=== PATIENT | female | born 1945 | race Caucasian/White ===

== ENCOUNTER → 2016-10-18 | Outpatient (CLI) | payer MEDICARE ==
[~2016-10-18] MED LIST: VICO5TAB
--- NOTE | 2016-10-18 09:54 | REP ---
BILATERAL DIGITAL SCREENING MAMMOGRAM: 10/18/2016. Comparison: 10/17/2015, 10/14/2014, 10/12/2013, 10/10/2012, 10/06/2011. Clinical history: Screening examination. She has a prior history of right breast cancer with lumpectomy, radiation and chemotherapy in 2010. There are scattered fibroglandular elements of moderate density which are fairly symmetric in distribution compared to prior studies. In the right breast, there is some mild skin thickening anteriorly which has decreased over the past 5 years. There are axillary surgical clips from prior lymph node dissection on the right. On the right MLO image, there is a subtle zone of nodular tissue asymmetry above the plane of the nipple. It may be noon position based on the MLO. There is tissue asymmetry in the deep central right breast inner half on the CC view, probably upper inner quadrant. These areas deserve further evaluation. There are no dominant masses, clusters of microcalcification, architectural distortion or other secondary signs of malignancy. Impression: 1. BIRADS ACR category 0 incomplete. Needs additional imaging evaluation. The right breast needs spot magnified MLO and CC views to evaluate the areas identified by arrows on today's mammogram. Additional images and ultrasound may be performed at the discretion of the reviewing radiologist. This mammogram was interpreted with the aid of an FDA-approved computer-aided detection system. A. Negative x-ray reports should not delay biopsy if a dominant or clinically suspicious mass is present. B. Four to eight percent of cancers are not identified by x-ray. C. Adenosis and dense breasts may obscure an underlying neoplasm. The patient states she had a clinical breast exam in 04/2016. The patient letter being requested is M0.
--- NOTE | 2016-10-19 09:24 | DEXA ---
AP SPINE L1 - L4 1.043 -1.2 0.5 LT FEMUR TOTAL 0.764 -1.9 -0.5 RT FEMUR TOTAL 0.799 -1.7 -0.2 TOTAL BODY TOTAL OTHER DUAL FEMUR FRAX* ASSESSMENT Risk factors: History adult fracture, premature menopause. 10 year probability of fracture Major osteoporotic fracture 17.1 % Hip fracture 3.0 % COMMENTS: There is low bone density of the spine. There is low bone density of the left hip. There is low bone density of the right hip. The decreased density of the spine does represent a significant change since . The decreased density of the left hip does represent a significant change since 10/14/2014. The decreased density of the right hip does represent a significant change. The density of the spine has decreased 2.3% since the initial exam on 2001. The spine density has decreased 2.3% since the most recent exam on 10/14/2014. The density of the left hip has decreased 10.0% since the initial exam on 2001. The density of the left hip has decreased 3.7% since the most recent exam on . The density of the right hip has decreased 4.2% since the initial exam on 2001. The density of the right hip has decreased 1.6% since the most recent exam on . FOLLOW-UP: Recommendation for the next bone density exam: 2 years. LUIS
== END ==
LOC: M WHC 08:29
PROVIDERS: ATTEND Nurse Practitioner Family
DX: R92.2 Inconclusive mammogram (principal); N95.1 Menopausal and female climacteric states; Z79.899 Other long term (current) drug therapy; M85.9 Disorder of bone density and structure, unspecified; Z08 Encounter for follow-up examination after completed treatment for malignant neoplasm; Z85.3 Personal history of malignant neoplasm of breast
CPT/HCPCS: 77080; G0202

== ENCOUNTER → 2016-10-21 | Outpatient (CLI) | payer MEDICARE ==
--- NOTE | 2016-10-21 14:45 | REP ---
RIGHT BREAST ULTRASOUND: 10/21/2016. COMPARISON: Diagnostic mammogram today, screening mammogram 10/18/2016, 10/17/2015, 10/14/2014. CLINICAL HISTORY: Previous screening mammogram with nodular tissue asymmetry retroareolar zone upper aspect on the MLO view, not seen in the dense breast parenchyma in the retroareolar zone on CC view or spot magnification. No cyst or solid mass is evident on these images. There are dilated ducts in the retroareolar zone. Dense echogenic fibrocystic tissue in the retroareolar region. No other findings. IMPRESSION: 1. No sonographic evidence of a nodular mass retroareolar zone upper half of the right breast. The dense echogenic retroareolar parenchyma on mammogram does NOT obscure any underlying sonographically visible mass. Negative exam. 2. Please see mammogram report this date for final assessment and recommendation. Signed by Lorenzo Jackson MD 10/21/2016 05:28 P
--- NOTE | 2016-10-21 15:01 | REP ---
DIAGNOSTIC DIGITAL RIGHT MAMMOGRAM: 10/21/2016 CLINICAL HISTORY: Some tissue asymmetry central right breast in the plane of the nipple on MLO view and inner half centrally on the CC view. She has history of right breast carcinoma with lumpectomy, radiation, and chemotherapy in 2010. FINDINGS: Magnified CC view, spot magnified right MLO, and ML views were all obtained. The area in question compresses on the spot magnified CC view to similar appearance of multiple prior studies. There is scarring evident and postoperative change. I do not see clustered microcalcification, architectural distortion, or significant tissue asymmetry. There are no suspicious clusters of microcalcification or other secondary signs of malignancy. The right breast ultrasound showed no sonographically definable mass, cyst, or other significant finding. IMPRESSION: 1. BI-RADS ACR category 2, benign. Benign findings. No evidence of malignancy. The tissue asymmetry compresses to appearance similar to multiple prior studies and represents postoperative scarring and compresses well with the spot magnified views. 2. Recommend followup mammography 1 year. This mammogram was interpreted with the aid of an FDA-approved computer-aided detection system. A. Negative x-ray reports should not delay biopsy if a dominant or clinically suspicious mass is present. B. Four to eight percent of cancers are not identified by x-ray. C. Adenosis and dense breasts may obscure an underlying neoplasm. The patient states she/he had a clinical breast exam in 04/2016. The patient letter being requested is M1. Signed by Lorenzo Jackson MD 10/21/2016 05:30 P
== END ==
LOC: M RAD 12:39
PROVIDERS: ATTEND Nurse Practitioner Family
DX: R92.2 Inconclusive mammogram (principal)
CPT/HCPCS: 76642; G0206

== ENCOUNTER → 2016-11-22 | Outpatient (REF) | payer MEDICARE | LOC: M LAB REF 12:40 | PROVIDERS: ATTEND Internal Medicine Medical Oncology | DX: C50.919 Malignant neoplasm of unspecified site of unspecified female breast (principal) ==

== ENCOUNTER → 2017-01-05 | Outpatient (CLI) | payer MEDICARE ==
[2017-01-05 13:47] LABS: EOS # 0.1 K/mm3 (0.0-0.50); EOS % 2.8 % (0.0-3.0); LARGE UNSTAINED CELL # 0.1 K/mm3 (0.0-0.4); LARGE UNSTAINED CELL % 2.4 % (0.0-4.0); LYMPH # 1.1 K/mm3 (1.5-4.5); LYMPH % 31.9 % (24.0-44.0); MEAN CORPUSCULAR HEMOGLOBIN 30.8 pg (27.0-33.0); MEAN CORPUSCULAR HGB CONC 33.3 g/dl (32.0-36.5); MEAN CORPUSCULAR VOLUME 92.4 fl (80.0-96.0); MONO # 0.2 K/mm3 (0.0-0.8); MONO % 6.7 % (0.0-5.0); NEUTROPHILS # 1.8 K/mm3 (1.8-7.7); NEUTROPHILS % 55.1 % (36.0-66.0); PLATELET COUNT, AUTOMATED 232 k/mm3 (150-450); RED CELL DISTRIBUTION WIDTH 13.5 % (11.5-14.5); WHITE BLOOD COUNT 3.2 K/mm3 (4.0-10.0)
[2017-01-05 14:06] LABS: FOLATE 21.3 NG/ML; VITAMIN B12 LEVEL 418 PG/ML
[2017-01-05 14:10] LABS: ALBUMIN 3.9 GM/DL (3.2-5.2); ALBUMIN/GLOBULIN RATIO 1.34 (1.00-1.93); ALKALINE PHOSPHATASE 91 U/L (45-117); ALT/SGPT 22 U/L (12-78); ANION GAP 8 MEQ/L (8-16); AST/SGOT 12 U/L (15-37); BILIRUBIN,TOTAL 0.5 MG/DL (0.2-1.0); BLOOD UREA NITROGEN 14 MG/DL (7-18); CALCIUM LEVEL 8.4 MG/DL (8.8-10.2); CARBON DIOXIDE LEVEL 28 MEQ/L (21-32); CHLORIDE LEVEL 104 MEQ/L (98-107); CHOLESTEROL LEVEL 211 MG/DL (<200); CREATININE FOR GFR 0.76 MG/DL (0.55-1.02); FREE T4 0.94 NG/DL (0.76-1.46); GLOMERULAR FILTRATION RATE > 60.0 (>45); GLUCOSE, FASTING 87 MG/DL (80-110); POTASSIUM SERUM 4.5 MEQ/L (3.5-5.1); SODIUM LEVEL 140 MEQ/L (136-145); TOTAL PROTEIN 6.8 GM/DL (6.4-8.2); TRIGLYCERIDES LEVEL 120 MG/DL (<150)
== END ==
LOC: M SMT 09:06
PROVIDERS: ATTEND Family Medicine
DX: R20.0 Anesthesia of skin (principal); M85.89 Other specified disorders of bone density and structure, multiple sites; R73.9 Hyperglycemia, unspecified

== ENCOUNTER → 2017-05-25 | Outpatient (REF) | payer MEDICARE | LOC: M LAB REF 12:35 | PROVIDERS: ATTEND Internal Medicine Medical Oncology | DX: C50.919 Malignant neoplasm of unspecified site of unspecified female breast (principal) ==

== ENCOUNTER → 2017-05-30 | Outpatient (CLI) | payer MEDICARE ==
--- NOTE | 2017-05-30 11:45 | REP ---
Whole body radionuclide bone scan: The study includes whole-body scanning and oblique views of the ribs and pelvis and lateral views of the calvarium and feet. There are no comparison studies. There is a degenerative pattern of uptake in the shoulders and at the bases of the thumbs. No rib or spine foci are identified. There is significant very increased uptake in the left hip. There is mildly increased uptake in the right hip. The pelvis is otherwise unremarkable. There is a slightly increased uptake in the right foot, likely arthritic or degenerative uptake. Impression: There is significantly increased uptake in the left hip is slightly increased uptake in the right hip. There is a degenerative pattern of uptake in the shoulders, thumb bases and right foot. The study is performed with 22.0 mCi of technetium 99m labeled MDP. Signed by Fuasto Marcelo MD 05/30/2017 11:36 A
== END ==
LOC: M RAD 08:16
PROVIDERS: ATTEND Internal Medicine Medical Oncology
DX: M25.552 Pain in left hip (principal); C50.919 Malignant neoplasm of unspecified site of unspecified female breast
CPT/HCPCS: 78306; A9503

== ENCOUNTER → 2017-06-13 | Outpatient (CLI) | payer MEDICARE ==
[~2017-06-13] MED LIST changes: +PROHANCE 279.3MG/ML 15ML VIAL (A9576) As Ordered ONE
--- NOTE | 2017-06-13 12:08 | REP ---
MRI LEFT HIP WITH AND WITHOUT CONTRAST: TECHNIQUE: Coronal T1, STIR through the pelvis, T2 fat sat, left hip all three planes, axial oblique proton density fat sat left hip. Coronal T2 fat sat, post IV Gadolinium coronal T2 fat sat and axial T2 fat sat following the intravenous administration of 6 mL Gadolinium. There are fairly severe arthritic changes at the left hip joint with diffuse chondromalacia and moderate spurring on both sides of the joint. There is subchondral marrow edema in the acetabulum superiorly as well as in the left femoral head. In addition, there is an area in the central articulating portion of the left femoral head which demonstrates serpiginous low and high signal most consistent with a small area of avascular necrosis. No suspicious bone lesion is seen in this region. There does appear to be an anterior labral tear. There is moderate joint effusion. There are also findings of mild bilateral greater trochanteric tendinobursitis. There is mild subchondral marrow edema in the right femoral head due to mild arthritic changes at the right hip joint. No soft tissue mass is seen in the visualized portions of the pelvis. No adenopathy is seen in the visualized portions of the pelvis. Other portions of visualized pelvis appear unremarkable. 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 Moderate joint effusion. Anterior labral tear. No suspicious bone lesions are identified. No soft tissue mass is seen of the visualized portions of the pelvis. There are mild arthritic changes at the right hip joint. Signed by Fausto Meade MD 06/14/2017 07:52 P
== END ==
LOC: M RAD 09:29
PROVIDERS: ATTEND Internal Medicine Medical Oncology
DX: C50.919 Malignant neoplasm of unspecified site of unspecified female breast (principal); M25.552 Pain in left hip; M85.80 Other specified disorders of bone density and structure, unspecified site
CPT/HCPCS: 73723; A9576

== ENCOUNTER → 2017-10-21 | Outpatient (CLI) | payer MEDICARE ==
[2017-10-21 07:42] LABS: ESTIMATED AVERAGE GLUCOSE 120 MG/DL (60-110); HEMOGLOBIN A1c 5.8 %
[2017-10-21 07:53] LABS: ALBUMIN/GLOBULIN RATIO 1.29 (1.00-1.93); ALKALINE PHOSPHATASE 79 U/L (45-117); ALT/SGPT 17 U/L (12-78); ANION GAP 7 MEQ/L (8-16); AST/SGOT 18 U/L (7-37); BILIRUBIN,TOTAL 0.5 MG/DL (0.2-1.0); BLOOD UREA NITROGEN 15 MG/DL (7-18); CALCIUM LEVEL 8.5 MG/DL (8.8-10.2); CARBON DIOXIDE LEVEL 28 MEQ/L (21-32); CHLORIDE LEVEL 107 MEQ/L (98-107); CHOLESTEROL LEVEL 192 MG/DL (<200); CHOLESTEROL RISK RATIO 2.109 (<5); CREATININE FOR GFR 0.82 MG/DL (0.55-1.30); GLOMERULAR FILTRATION RATE > 60.0 (>39); GLUCOSE, FASTING 82 MG/DL (70-100); HDL CHOLESTEROL 91 MG/DL (>40); NON-HDL-C 101 MG/DL; POTASSIUM SERUM 3.9 MEQ/L (3.5-5.1); SODIUM LEVEL 142 MEQ/L (136-145); TOTAL PROTEIN 7.1 GM/DL (6.4-8.2); TRIGLYCERIDES LEVEL 100 MG/DL (<150)
== END ==
LOC: M LAB 07:02
DX: E78.00 Pure hypercholesterolemia, unspecified (principal); R73.9 Hyperglycemia, unspecified
CPT/HCPCS: 80053

== ENCOUNTER → 2017-10-24 | Outpatient (CLI) | payer MEDICARE | LOC: M RAD 08:47 | DX: Z12.31 Encounter for screening mammogram for malignant neoplasm of breast (principal); Z85.3 Personal history of malignant neoplasm of breast; N60.31 Fibrosclerosis of right breast | CPT/HCPCS: 77067 ==

== ENCOUNTER → 2017-12-22 | Outpatient (REF) | payer MEDICARE ==
[2017-12-23 11:48] LABS: CA15-3 ANTIGEN 14.1 U/ML (<32.4)
== END ==
LOC: M LAB REF 13:29
DX: C50.919 Malignant neoplasm of unspecified site of unspecified female breast (principal)
CPT/HCPCS: 86300

== ENCOUNTER → 2018-03-22 | Outpatient (CLI) | payer MEDICARE ==
[2018-03-22 08:05] LABS: BASO % 0.4 % (0.0-1.0); EOS # 0.1 10^3/uL (0.0-0.50); EOS % 2.7 % (0.0-3.0); HEMATOCRIT 37.7 % (36.0-47.0); HEMOGLOBIN 12.1 g/dl (12.0-15.5); LYMPH # 1.3 10^3/uL (1.5-4.5); MEAN CORPUSCULAR HEMOGLOBIN 28.3 pg (27.0-33.0); MEAN CORPUSCULAR HGB CONC 32.1 g/dl (32.0-36.5); MEAN CORPUSCULAR VOLUME 88.3 fl (80.0-96.0); MONO # 0.5 10^3/uL (0.0-0.8); MONO % 10.3 % (0.0-5.0); NEUTROPHILS # 2.9 10^3/uL (1.8-7.7); NEUTROPHILS % 59.6 % (36.0-66.0); PLATELET COUNT, AUTOMATED 230 10^3/uL (150-450); RED BLOOD COUNT 4.27 10^6/uL (4.00-5.40); RED CELL DISTRIBUTION WIDTH 14.8 % (11.5-14.5); WHITE BLOOD COUNT 4.9 10^3/uL (4.0-10.0)
[2018-03-22 08:45] LABS: ALBUMIN 3.9 GM/DL (3.2-5.2); ALBUMIN/GLOBULIN RATIO 1.18 (1.00-1.93); ALKALINE PHOSPHATASE 77 U/L (45-117); ALT/SGPT 29 U/L (12-78); ANION GAP 9 MEQ/L (8-16); AST/SGOT 41 U/L (7-37); BILIRUBIN,TOTAL 0.5 MG/DL (0.2-1.0); BLOOD UREA NITROGEN 8 MG/DL (7-18); CALCIUM LEVEL 8.8 MG/DL (8.8-10.2); CARBON DIOXIDE LEVEL 25 MEQ/L (21-32); CHLORIDE LEVEL 107 MEQ/L (98-107); CHOLESTEROL LEVEL 162 MG/DL (<200); CREATININE FOR GFR 0.67 MG/DL (0.55-1.30); GLOMERULAR FILTRATION RATE > 60.0 (>39); GLUCOSE, FASTING 86 MG/DL (70-100); HDL CHOLESTEROL 81 MG/DL (>40); LDL CHOLESTEROL 51.4 MG/DL (<100); NON-HDL-C 81 MG/DL; POTASSIUM SERUM 4.5 MEQ/L (3.5-5.1); SODIUM LEVEL 141 MEQ/L (136-145); TOTAL PROTEIN 7.2 GM/DL (6.4-8.2); TRIGLYCERIDES LEVEL 148 MG/DL (<150)
[2018-03-22 09:10] LABS: ESTIMATED AVERAGE GLUCOSE 126 MG/DL (60-110)
== END ==
LOC: M LAB 07:02
DX: R73.9 Hyperglycemia, unspecified (principal); E78.00 Pure hypercholesterolemia, unspecified
CPT/HCPCS: 84443

== ENCOUNTER → 2018-06-21 | Outpatient (CLI) | payer MEDICARE ==
[2018-06-21 10:40] LABS: ANION GAP 4 MEQ/L (8-16); BLOOD UREA NITROGEN 11 MG/DL (7-18); CALCIUM LEVEL 9.1 MG/DL (8.8-10.2); CARBON DIOXIDE LEVEL 29 MEQ/L (21-32); CHLORIDE LEVEL 105 MEQ/L (98-107); GLOMERULAR FILTRATION RATE > 60.0 (>39); GLUCOSE, FASTING 88 MG/DL (70-100); POTASSIUM SERUM 4.6 MEQ/L (3.5-5.1); SODIUM LEVEL 138 MEQ/L (136-145)
[2018-06-21 10:43] LABS: ESTIMATED AVERAGE GLUCOSE 123 MG/DL (60-110); HEMOGLOBIN A1c 5.9 %
== END ==
LOC: M LAB 09:12
DX: R73.03 Prediabetes (principal)
CPT/HCPCS: 36591

== ENCOUNTER → 2018-10-04 | Outpatient (CLI) | payer MEDICARE ==
[~2018-10-04] MED LIST changes: +ALEN70TA57 PO; +ASPI1TAB PO; +CITRTAB18 PO; +LETR2.5T2 PO; -PROHANCE 279.3MG/ML 15ML VIAL (A9576) As Ordered ONE; +SAM-400T3 PO; +SIMV40TA2 PO
[2018-10-04 08:13] LABS: BASO # 0.1 10^3/uL (0.0-0.2); BASO % 1.5 % (0.0-1.0); EOS # 0.2 10^3/uL (0.0-0.50); EOS % 6.1 % (0.0-3.0); HEMATOCRIT 35.7 % (36.0-47.0); HEMOGLOBIN 11.4 g/dl (12.0-15.5); LYMPH % 31.5 % (24.0-44.0); MEAN CORPUSCULAR HEMOGLOBIN 28.3 pg (27.0-33.0); MEAN CORPUSCULAR HGB CONC 31.9 g/dl (32.0-36.5); MEAN CORPUSCULAR VOLUME 88.6 fl (80.0-96.0); MONO # 0.4 10^3/uL (0.0-0.8); MONO % 12.7 % (0.0-5.0); NEUTROPHILS # 1.6 10^3/uL (1.8-7.7); NEUTROPHILS % 48.2 % (36.0-66.0); PLATELET COUNT, AUTOMATED 238 10^3/uL (150-450); RED BLOOD COUNT 4.03 10^6/uL (4.00-5.40); WHITE BLOOD COUNT 3.3 10^3/uL (4.0-10.0)
[2018-10-04 08:46] LABS: ALBUMIN 3.7 GM/DL (3.2-5.2); ALT/SGPT 22 U/L (12-78); BILIRUBIN,TOTAL 0.4 MG/DL (0.2-1.0); BLOOD UREA NITROGEN 18 MG/DL (7-18); CALCIUM LEVEL 8.9 MG/DL (8.8-10.2); CARBON DIOXIDE LEVEL 28 MEQ/L (21-32); CHLORIDE LEVEL 107 MEQ/L (98-107); CHOLESTEROL LEVEL 181 MG/DL (<200); CREATININE FOR GFR 0.82 MG/DL (0.55-1.30); GLOMERULAR FILTRATION RATE > 60.0 (>39); GLUCOSE, FASTING 85 MG/DL (70-100); HDL CHOLESTEROL 83 MG/DL (>40); LDL CHOLESTEROL 79 MG/DL (<100); NON-HDL-C 98 MG/DL; POTASSIUM SERUM 4.9 MEQ/L (3.5-5.1); SODIUM LEVEL 141 MEQ/L (136-145); TOTAL PROTEIN 6.5 GM/DL (6.4-8.2); TRIGLYCERIDES LEVEL 95 MG/DL (<150)
== END ==
LOC: M LAB 07:28
PROVIDERS: ATTEND Physician Assistant
DX: R73.03 Prediabetes (principal)

== ENCOUNTER → 2018-10-25 | Outpatient (CLI) | payer MEDICARE ==
--- NOTE | 2018-10-25 09:47 | REPMRS ---
Patient History The patient states she had a clinical breast exam in 2017. Family history of breast cancer at age 57 in mother, breast cancer at age 50 or over in maternal aunt. Malignant lumpectomy of the right breast, October 2010. Taking tamoxifen for 6 years. Digital Mammo Screening Bilat: October 25, 2018 - Exam #: [id number] Bilateral CC and MLO view(s) were taken. Technologist: Heather West, Technologist Prior study comparison: October 24, 2017, bilateral digital mammo screening bilat performed at [facility]. October 18, 2016, digital woman screen mammo, performed at [facility]. October 17, 2015, digital woman screen mammo, performed at [facility]. FINDINGS: There are scattered fibroglandular densities. There are post-treatment fibrotic changes again noted at 12 o'clock in the right breast unchanged from the [place] studies. There has been no change in the appearance of the mammogram from the prior studies. There is a mild amount of scattered fibroglandular density which is fairly symmetric. There is no interval development of dominant mass, architectural distortion, or clustered microcalcification suggestive of malignancy. 3-D tomosynthesis shows no additional findings. Assessment: BI-RADS/ACR category 2 mammogram. Benign Findings. Recommendation Routine screening mammogram of both breasts in 1 year (for women over age 40). This mammogram was interpreted with the aid of an FDA-approved computer-aided dectection system. Electronically Signed By: Doug Leon MD 10/25/18 0934
== END ==
LOC: M RAD 08:01
PROVIDERS: ATTEND Internal Medicine Medical Oncology
DX: Z12.31 Encounter for screening mammogram for malignant neoplasm of breast (principal); Z80.3 Family history of malignant neoplasm of breast; Z85.3 Personal history of malignant neoplasm of breast; Z92.29 Personal history of other drug therapy

== ENCOUNTER → 2018-10-25 | Outpatient (CLI) | payer MEDICARE ==
--- NOTE | 2018-10-27 15:04 | DEXA ---
AP SPINE L1 - L4 1.073 -1.0 0.7 LT FEMUR TOTAL 0.798 -1.7 -0.1 LT NECK 0.851 -1.3 0.4 RT FEMUR TOTAL 0.814 -1.5 0.0 RT NECK 0.802 -1.7 0.1 TOTAL BODY TOTAL OTHER COMMENTS: There is low bone density of the spine and hips. The density of the spine has increased 0.5% since the initial exam on 09/22/2001. The spine density has increased 2.9% since the most recent exam on 10/18/2016. The density of the left hip has decreased 6.0% since the initial exam on 09/22/2001. The density of the left hip has increased 4.5% since the most recent exam on 10/18/2016. The density of the right hip has decreased 2.4% since the initial exam on 09/22/2001. The density of the right hip has increased 1.9% since the most recent exam on 10/18/2016. FOLLOW-UP: Recommendation for the next bone density exam: 2 years. TRISTOND
== END ==
LOC: M WHC 08:35
PROVIDERS: ATTEND Internal Medicine Medical Oncology
DX: M85.80 Other specified disorders of bone density and structure, unspecified site (principal); Z12.31 Encounter for screening mammogram for malignant neoplasm of breast; Z80.3 Family history of malignant neoplasm of breast; Z85.3 Personal history of malignant neoplasm of breast; Z92.29 Personal history of other drug therapy

== ENCOUNTER → 2019-09-27 | Outpatient (CLI) | payer MEDICARE ==
[~2019-09-27] MED LIST changes: -ALEN70TA57 PO; +ALEN70TA74 PO; -ASPI1TAB PO; +ASPI81TA26 PO; +FERR325T3 PO; +IRON18TA PO; -SIMV40TA2 PO; +SIMV40TA20 PO; +VITA-157 PO
[2019-09-27 09:12] LABS: BASO % 0.5 % (0.0-1.0); EOS # 0.1 10^3/uL (0.0-0.5); EOS % 2.9 % (0.0-3.0); HEMATOCRIT 42.5 % (36.0-47.0); HEMOGLOBIN 13.2 g/dl (12.0-15.5); LYMPH # 0.8 10^3/uL (1.5-5.0); LYMPH % 22.2 % (24.0-44.0); MEAN CORPUSCULAR HEMOGLOBIN 29.3 pg (27.0-33.0); MEAN CORPUSCULAR HGB CONC 31.1 g/dl (32.0-36.5); MEAN CORPUSCULAR VOLUME 94.4 fl (80.0-96.0); MONO # 0.4 10^3/uL (0.0-0.8); MONO % 9.3 % (0.0-5.0); NEUTROPHILS # 2.5 10^3/uL (1.5-8.5); NEUTROPHILS % 64.8 % (36.0-66.0); PLATELET COUNT, AUTOMATED 234 10^3/uL (150-450); WHITE BLOOD COUNT 3.8 10^3/uL (4.0-10.0)
[2019-09-27 09:38] LABS: ALT/SGPT 18 U/L (12-78); BILIRUBIN,TOTAL 0.5 MG/DL (0.2-1.0); BLOOD UREA NITROGEN 10 MG/DL (7-18); CALCIUM LEVEL 8.9 MG/DL (8.8-10.2); CARBON DIOXIDE LEVEL 30 MEQ/L (21-32); CHLORIDE LEVEL 108 MEQ/L (98-107); CREATININE FOR GFR 0.78 MG/DL (0.55-1.30); FERRITIN 29 NG/ML (8-252); GLOMERULAR FILTRATION RATE > 60.0 (>39); GLUCOSE, FASTING 88 MG/DL (70-100); IRON (FE) 56 UG/DL (50-170); POTASSIUM SERUM 4.5 MEQ/L (3.5-5.1); SODIUM LEVEL 142 MEQ/L (136-145); TOTAL IRON BINDING CAPACITY 432 UG/DL (250-450)
[2019-09-27 09:44] LABS: FOLATE 8.3 NG/ML; VITAMIN B12 LEVEL 389 PG/ML
[2019-09-27 11:05] LABS: HEMOGLOBIN A1c 5.8 %
== END ==
LOC: M LAB 08:11
PROVIDERS: ATTEND Physician Assistant
DX: D64.9 Anemia, unspecified (principal); R73.03 Prediabetes

== ENCOUNTER → 2019-11-05 | Outpatient (CLI) | payer MEDICARE ==
--- NOTE | 2019-11-05 10:26 | REP ---
BILATERAL SCREENING DIGITAL MAMMOGRAM WITH 3D TOMOSYNTHESIS: There are no palpable abnormalities or other breast complaints. The the patient states she had a clinical breast examination May,. The The the patient states she performs self-breast examinations 12 times per year The Christina Wilks Lifetime Breast Cancer Risk Score is: NA. Comparison is 08/16/2016. The patient has a history of right breast carcinoma at age 65 treated with lumpectomy and chemo radiation. The breasts are heterogeneously dense, which could obscure small masses. There is no dominant mass, micro calcific cluster or architectural distortion that would indicate malignancy. There are surgical clips in the right axilla. There is a stable surgical scar posteriorly in the right breast. There are no additional findings on 3D tomosynthesiss. There is no change from the prior study. Impression: BIRADS/ACR category 1 mammogram. Negative. Recommendation: Routine annual screening mammography. Because of the increased breast density, annual adjunctive breast MRI in addition to screening mammography is recommended. These can be performed at alternating six month intervals. This mammogram was interpreted with the aid of a FDA approved computer-aided detection system. A. Negative mammogram reports should not delay biopsy if a dominant or clinically suspicious mass is present. B. Not all breast cancers are identified by mammography or tomosynthesis. C. Adenosis and dense breasts may obscure an underlying neoplasm. Patient letter M1 dense breasts. Electronically Signed by Fausto Marcelo MD 11/05/2019 10:18 A
== END ==
LOC: M WHC 08:54
PROVIDERS: ATTEND Family Medicine
DX: Z12.31 Encounter for screening mammogram for malignant neoplasm of breast (principal); Z85.3 Personal history of malignant neoplasm of breast

== ENCOUNTER → 2019-12-26 | Outpatient (CLI) | payer MEDICARE ==
[2019-12-26 11:17] LABS: BLOOD UREA NITROGEN 16 MG/DL (7-18); CALCIUM LEVEL 9.1 MG/DL (8.8-10.2); CARBON DIOXIDE LEVEL 29 MEQ/L (21-32); CHLORIDE LEVEL 108 MEQ/L (98-107); CHOLESTEROL LEVEL 190 MG/DL (<200); CHOLESTEROL RISK RATIO 2.289 (<5); CREATININE FOR GFR 0.82 MG/DL (0.55-1.30); GLOMERULAR FILTRATION RATE > 60.0 (>39); GLUCOSE, FASTING 91 MG/DL (70-100); HDL CHOLESTEROL 83 MG/DL (>40); LDL CHOLESTEROL 83 MG/DL (<100); NON-HDL-C 107 MG/DL; POTASSIUM SERUM 4.6 MEQ/L (3.5-5.1); SODIUM LEVEL 140 MEQ/L (136-145); TRIGLYCERIDES LEVEL 122 MG/DL (<150)
[2019-12-26 11:37] LABS: HEMOGLOBIN A1c 5.8 %
== END ==
LOC: M PLALAB 08:37
PROVIDERS: ATTEND Physician Assistant
DX: R73.03 Prediabetes (principal)

== ENCOUNTER → 2020-01-08 | Outpatient (REF) | payer MEDICARE ==
[~2020-01-08] MED LIST changes: -ALEN70TA74 PO; +ALEN70TA82 PO; +ASPI81TA86 PO; +D 50CAP3 PO; +PERC5TAB12 PO; +QC A650T3 PO; +TRAM50TA2 PO
[2020-01-08 13:14] LABS: BASO % 0.5 % (0.0-1.0); EOS # 0.1 10^3/uL (0.0-0.5); EOS % 1.6 % (0.0-3.0); HEMATOCRIT 39.4 % (36.0-47.0); HEMOGLOBIN 12.7 g/dl (12.0-15.5); LYMPH # 1.6 10^3/uL (1.5-5.0); LYMPH % 24.2 % (24.0-44.0); MEAN CORPUSCULAR HEMOGLOBIN 30.4 pg (27.0-33.0); MEAN CORPUSCULAR HGB CONC 32.2 g/dl (32.0-36.5); MEAN CORPUSCULAR VOLUME 94.3 fl (80.0-96.0); MONO # 0.5 10^3/uL (0.0-0.8); MONO % 7.9 % (0.0-5.0); NEUTROPHILS # 4.2 10^3/uL (1.5-8.5); NEUTROPHILS % 65.6 % (36.0-66.0); PLATELET COUNT, AUTOMATED 223 10^3/uL (150-450); RED BLOOD COUNT 4.18 10^6/uL (4.00-5.40); WHITE BLOOD COUNT 6.4 10^3/uL (4.0-10.0)
[2020-01-08 13:42] LABS: ALBUMIN 3.6 GM/DL (3.2-5.2); ALT/SGPT 20 U/L (12-78); BILIRUBIN,TOTAL 0.4 MG/DL (0.2-1.0); BLOOD UREA NITROGEN 14 MG/DL (7-18); CALCIUM LEVEL 9.1 MG/DL (8.8-10.2); CARBON DIOXIDE LEVEL 30 MEQ/L (21-32); CHLORIDE LEVEL 106 MEQ/L (98-107); CREATININE FOR GFR 0.81 MG/DL (0.55-1.30); GLOMERULAR FILTRATION RATE > 60.0 (>39); GLUCOSE, FASTING 92 MG/DL (70-100); POTASSIUM SERUM 4.6 MEQ/L (3.5-5.1); SODIUM LEVEL 140 MEQ/L (136-145); TOTAL PROTEIN 6.6 GM/DL (6.4-8.2)
== END ==
LOC: M LABDRWAD 12:33
PROVIDERS: ATTEND Internal Medicine Medical Oncology
DX: C50.911 Malignant neoplasm of unspecified site of right female breast (principal)

== ENCOUNTER → 2020-01-30 | Outpatient (CLI) | payer MEDICARE ==
[~2020-01-30] MED LIST changes: +ALEN70TA74 PO; -ALEN70TA82 PO; +ASPI81TA85 PO; -ASPI81TA86 PO; -QC A650T3 PO; -TRAM50TA2 PO
[2020-01-30 17:05] LABS: HEMATOCRIT 40.5 % (36.0-47.0); HEMOGLOBIN 13.4 g/dl (12.0-15.5); MEAN CORPUSCULAR HEMOGLOBIN 30.1 pg (27.0-33.0); MEAN CORPUSCULAR HGB CONC 33.1 g/dl (32.0-36.5); PLATELET COUNT, AUTOMATED 256 10^3/uL (150-450); RED BLOOD COUNT 4.45 10^6/uL (4.00-5.40); WHITE BLOOD COUNT 5.4 10^3/uL (4.0-10.0)
--- NOTE | 2020-01-30 17:13 | REP ---
REASON FOR EXAM: Arthritis. COMPARISON: 11/20/2010 Once again, the lung smalls are hyperexpanded. Once again, there are emphysematous changes with evidence of bullous emphysematous change seen in the lung apical regions bilaterally, right greater than left, and increased from the prior exam. No acute patchy parenchymal opacities or pleural effusions have developed. The heart is not enlarged. There is no change in the osseous structures. Surgical clips are again seen in the right axillary region, secondary to previous surgical procedure. IMPRESSION: Chronic lung field changes, as described above without evidence of acute cardiopulmonary disease. Electronically Signed by Emilio Rock DO 01/30/2020 05:43 P
[2020-01-30 17:17] LABS: INR 1.12; PROTHROMBIN TIME 14.1 SECONDS (11.8-14.0)
[2020-01-30 17:36] LABS: ALBUMIN 4.3 GM/DL (3.2-5.2); ALT/SGPT 20 U/L (12-78); BILIRUBIN,TOTAL 0.4 MG/DL (0.2-1.0); BLOOD UREA NITROGEN 10 MG/DL (7-18); CALCIUM LEVEL 9.5 MG/DL (8.8-10.2); CARBON DIOXIDE LEVEL 28 MEQ/L (21-32); CHLORIDE LEVEL 102 MEQ/L (98-107); CREATININE FOR GFR 0.78 MG/DL (0.55-1.30); GLOMERULAR FILTRATION RATE > 60.0 (>39); GLUCOSE, FASTING 93 MG/DL (70-100); POTASSIUM SERUM 4.2 MEQ/L (3.5-5.1); SODIUM LEVEL 137 MEQ/L (136-145); TOTAL PROTEIN 7.5 GM/DL (6.4-8.2)
[2020-01-30 17:39] LABS: ERYTHROCYTE SEDIMENTATION RATE 14 mm/hr (0-30)
== END ==
LOC: M LAB 16:08
PROVIDERS: ATTEND Orthopaedic Surgery
DX: Z01.818 Encounter for other preprocedural examination (principal); M16.12 Unilateral primary osteoarthritis, left hip

== ENCOUNTER → 2020-02-03 | Outpatient (CLI) | payer MEDICARE ==
[~2020-02-03] MED LIST changes: +QC A650T3 PO; +TRAM50TA2 PO
== END ==
LOC: M LABSMTC 09:09
PROVIDERS: ATTEND Anesthesiology
DX: Z01.818 Encounter for other preprocedural examination (principal); Z11.59 Encounter for screening for other viral diseases

== ENCOUNTER 2020-02-06 12:30 | Inpatient (IN) | payer MEDICARE ==
--- NOTE | 2020-02-04 16:22 | HPE ---
DATE OF SCHEDULED ADMISSION: 02/06/2020 ATTENDING PHYSICIAN: Dr. Janell Leong CHIEF COMPLAINT: Left hip pain and stiffness. HISTORY: This is a 74-year-old female patient with progressively worsening left hip pain and stiffness. She failed to improve with conservative management. She has elected for surgery for her continued symptoms. X-ray of the hip noted for end-stage degenerative changes of the left hip. She was consented by Dr. Leong for a left total hip arthroplasty. Medical optimized Dr. Jacinto; it is not present for review today. ALLERGIES: No known drug allergies. CURRENT MEDICATIONS - letrozole 2.5 mg one tablet once per day - simvastatin 40 mg once per day - aspirin 81 mg once per day - Aleve intermittently - She also takes [id number] iron, vitamin D3 and Citracal. MEDICAL CONDITIONS: Include osteoarthritis of the left hip, elevated cholesterol, history of breast cancer. SURGICAL HISTORY: Includes a breast biopsy, hysterectomy and bunionectomy. SOCIAL HISTORY: She does not smoke. She occasionally uses alcohol. She is retired. REVIEW OF SYSTEMS: Denies any fevers or chills. Denies chest pain, shortness of breath, or cough. Denies difficulty breathing. Notes persistent pain in her left hip. PHYSICAL EXAMINATION: Exam today reveals alert, well-nourished, well-developed female patient. She ambulates with a limping gait, favoring the left side. The skin around the left hip is intact. No erythema, edema, or ecchymosis. There is irritability on hip range of motion. Straight leg raise testing is negative. Sensation is intact to light touch. There are bilateral breath sounds, clear to auscultation. Regular rate and rhythm. Abdomen: Bowel sounds are present. Current vital signs: Height 63 inches, weight 126 pounds, temperature 98.6, blood pressure 120/62, pulse 68, respirations 18. IMPRESSION: Symptomatic osteoarthritis of the left hip. LABORATORY DATA: Glucose 93, BUN 10, creatinine 0.78, sodium 137, potassium 4.2, PT 14.1, INR 1.12, sed rate of 14. WBC count of 5.4, RBC count of 4.4, hemoglobin 13.4, hematocrit 40.6. Chest x-ray: No acute cardiopulmonary disease process noted. EKG: Sinus rhythm. PLAN: She is consented by Dr. Leong for a left total hip arthroplasty. She understands to discontinue her nonsteroidal anti-inflammatory drugs (NSAIDS) 5 days prior to surgery. She had her COVID testing. We went over her preoperative, postoperative instructions. She understands she will likely be in the hospital 1 day and then be discharged home at that point. She understands her postop instructions. All of her questions were answered. She was instructed to make sure she calls the hospital one day prior to her surgery for the correct time. We discussed being on time for the surgery.
[~2020-02-06] VITALS: Ht 162.6 cm; Wt 57.6 kg
[~2020-02-06 12:30] MED LIST changes: +ACETAMINOPHEN 500 MG TAB PO ONE; -ASPI81TA85 PO; +LR 1,000 ML IV ONE; -PERC5TAB12 PO; -QC A650T3 PO; -TRAM50TA2 PO; +ceFAZolin SOD 2 GM in IV 1 EA IV ONE
[2020-02-06] MEDS ORDERED: ACETAMINOPHEN TAB 650MG DOSE (2X325MG) PO PRN (14:00)
[2020-02-06] MEDS ORDERED: PERCOCET 5MG/325MG TAB PO PRN (14:00)
[2020-02-06] MEDS ORDERED: LR 1,000 ML IV SCH ×2 (14:00→18:15)
[2020-02-06] MEDS ORDERED: MORPHINE 4 MG/ML 1ML VIAL/SYRINGE (J2270) IV PRN (14:00)
[2020-02-06] MEDS ORDERED: ONDANSETRON 4MG/2ML VIAL IV PRN ×2 (14:00→18:15)
[2020-02-06] MEDS ORDERED: ceFAZolin 1GM VIAL (J0690 PER 500MG) As Ordered ONE (14:15)
[2020-02-06] MEDS ORDERED: fentaNYL 100 MCG/2 ML INJECTION (J3010) As Ordered ONE (16:01)
[2020-02-06] MEDS ORDERED: propofoL 200 MG/20 ML VIAL As Ordered ONE ×2 (16:01→17:24)
[2020-02-06] MEDS ORDERED: MIDAZOLAM INJ 2MG/2ML VIAL (J2250 PER 1MG) As Ordered ONE (16:01)
[2020-02-06] MEDS ORDERED: ePHEDrine SULFATE 25 MG/5 ML(5MG/ML) SYRINGE As Ordered ONE (16:13)
[2020-02-06] MEDS ORDERED: fentaNYL 100 MCG/2 ML INJECTION (J3010) IV PRN (18:15)
[2020-02-06] MEDS ORDERED: METOCLOPRAMIDE INJ 10MG/2ML VIAL (J2765 PER 1) IV PRN (18:15)
--- NOTE | 2020-02-06 18:18 | CR.PDOC ---
General Date of Consultation: Feb 06, 2020 Referring Provider: Janell Leong Consultation REASON FOR CONSULTATION/CHIEF COMPLAINT: [Medical management]. HISTORY OF PRESENT ILLNESS: [This is a 74 years old white female with past medical history of hyperlipidemia, breast cancer, hypertension, had a left hip arthroplasty done today by Dr. Castro. . We were called in for the medical management and consult. Patient is comfortable. She was seen in PACU and offers no new complaints except some pain at the surgical site.]. ALLERGIES: Please see below. HOME MEDICATIONS: Please see below. PAST MEDICAL HISTORY: , Hypertension, hyperlipidemia, breast cancer PAST SURGICAL HISTORY: , Breast lumpectomy, total hysterectomy, bunionectomy FAMILY HISTORY: Father had a history of heart disease, mother had a history of heart disease and cancer SOCIAL HISTORY: Patient denies any history of smoking. She has occasional alcohol consumption, but no drugs REVIEW OF SYSTEMS: CONSTITUTIONAL: [No fever, headache]. HEENT: [No redness, ear pain]. CARDIOVASCULAR: [No chest pain, palpitation]. RESPIRATORY: [, No shortness of breath or cough]. GENITOURINARY: [No dysuria, frequency]. MUSCULOSKELETAL: [No muscle aches and pains]. GASTROINTESTINAL: [, No nausea, vomiting or diarrhea]. SKIN: [No redness or itching]. NEUROLOGICAL: [No muscle weakness or sensory loss]. PSYCHIATRIC: [No anxiety, depression]. ENDOCRINE: [No diabetes or cancer]. HEMATOLOGIC/LYMPHATIC: [, No leukemia or lymphoma]. ALLERGIC/IMMUNOLOGIC: No allergy, PHYSICAL EXAMINATION: VITAL SIGNS: Please see below. GENERAL APPEARANCE: [Patient lying in bed, appears comfortable in no apparent distress dressing on the left hip]. HEENT: [PERRLA. Extraocular muscles intact]. RESPIRATORY: [Clear to A&P. No rales, rhonchi, wheezing]. CARDIOVASCULAR: [S1, S2, regular]. ABDOMEN: [Benign, soft, nontender]. EXTREMITIES: [No clubbing, cyanosis, edema. Dressing at the left hip]. NEUROLOGICAL: [. No focal motor sensory deficit]. PSYCHIATRIC: [No anxiety and depression]. LABORATORY DATA: Please see below. ASSESSMENT/PLAN: #1 status post left hip arthroplasty #2. Hypertension #3. Hyperlipidemia #4. Vitamin D deficiency #5. Osteoarthritis Patient is status post left hip arthroplasty, which she tolerated procedure very well with minimum intraoperative loss of blood. Patient is feeling comfortable slight pain and tenderness and pain at the site Will continue pain management as per orders from orthopedics Will also continue all patient's home medications, which she been taken as an outpatient Physical therapy and discharge planning as per orthopedic CBC, CMP has been ordered for tomorrow morning Thank you for calling this consult, Dr. Leong and will gladly follow patient with you during the stay at this hospital Vital Signs/I&O Vital Signs Date Time Temp Pulse Resp B/P (MAP) Pulse Ox O2 Delivery O2 Flow Rate FiO2 02/06/20 13:10 96.9 80 18 159/86 (110) 98 Room Air Allergies Coded Allergies: No Known Allergies (Unverified , 11/30/18) Home Medications Scheduled Aspirin (Aspirin EC) 81 Mg Tab, 81 MG PO DAILY for pain for 30 Days, #30 (Reported) Aspirin (Aspir 81) 81 Mg Tablet.dr, 1 TAB PO BID for pain for 35 Days, #70 Calcium Citrate/Vitamin D3 (Citracal + D Maximum Caplet) 1 Tab Tab, 1 TAB PO QAM, (Reported) Cholecalciferol (Vitamin D3) (Vitamin D3) 125 Mcg Capsule, 125 MCG PO DAILY, (Reported) Iron (Iron) 18 Mg Tablet, 65 MG PO DAILY, (Reported) Letrozole (Letrozole) 2.5 Mg Tab, 2.5 MG PO DAILY for 90 Days, #90 Simvastatin (Simvastatin) 40 Mg Tab, 40 MG PO DAILY, (Reported) Scheduled PRN Oxycodone HCl/Acetaminophen (Percocet 5-325 mg Tablet) 1 Each Tablet, 1 TAB PO Q4H PRN for PAIN, #30 TRISHA MAXWELL MD Feb 06, 2020 18:18
[2020-02-06] MEDS: PERCOCET 5MG/325MG TAB PO PRN (19:09)
[2020-02-06 19:45] VITALS: BP 130/86
[2020-02-06 20:15] VITALS: BP 126/75
[2020-02-06] MEDS: ceFAZolin SOD 2 GM in IV 1 EA IV SCH (20:20)
[2020-02-06] MEDS: SIMVASTATIN 40 MG TAB PO SCH (20:20)
[2020-02-06 21:14] VITALS: BP 121/67
[2020-02-06 22:15] VITALS: BP 101/56
[2020-02-06 23:15] VITALS: BP 122/58
[2020-02-07] VITALS (7 sets, daily range): BP systolic 101–150; BP diastolic 44–72
[2020-02-07] MEDS: PERCOCET 5MG/325MG TAB PO PRN (00:34)
[2020-02-07] MEDS: ceFAZolin SOD 2 GM in IV 1 EA IV SCH ×2 (05:03→13:21)
[2020-02-07 05:59] LABS: BASO % 0.2 % (0.0-1.0); HEMATOCRIT 31.9 % (36.0-47.0); HEMOGLOBIN 10.3 g/dl (12.0-15.5); LYMPH # 0.6 10^3/uL (1.5-5.0); LYMPH % 6.3 % (24.0-44.0); MEAN CORPUSCULAR HEMOGLOBIN 29.8 pg (27.0-33.0); MEAN CORPUSCULAR HGB CONC 32.3 g/dl (32.0-36.5); MEAN CORPUSCULAR VOLUME 92.2 fl (80.0-96.0); MONO # 0.6 10^3/uL (0.0-0.8); MONO % 6.1 % (0.0-5.0); NEUTROPHILS # 8.1 10^3/uL (1.5-8.5); NEUTROPHILS % 87.2 % (36.0-66.0); PLATELET COUNT, AUTOMATED 249 10^3/uL (150-450); RED BLOOD COUNT 3.46 10^6/uL (4.00-5.40); WHITE BLOOD COUNT 9.3 10^3/uL (4.0-10.0)
[2020-02-07 06:21] LABS: ALBUMIN 3.1 GM/DL (3.2-5.2); ALT/SGPT 15 U/L (12-78); BILIRUBIN,TOTAL 0.6 MG/DL (0.2-1.0); BLOOD UREA NITROGEN 12 MG/DL (7-18); CALCIUM LEVEL 8.1 MG/DL (8.8-10.2); CARBON DIOXIDE LEVEL 27 MEQ/L (21-32); CHLORIDE LEVEL 103 MEQ/L (98-107); CREATININE FOR GFR 0.84 MG/DL (0.55-1.30); GLOMERULAR FILTRATION RATE > 60.0 (>39); GLUCOSE, FASTING 174 MG/DL (70-100); POTASSIUM SERUM 4.1 MEQ/L (3.5-5.1); SODIUM LEVEL 137 MEQ/L (136-145); TOTAL PROTEIN 5.7 GM/DL (6.4-8.2)
[2020-02-07] MEDS ORDERED: ASPI81TA85 PO (06:38)
[2020-02-07] MEDS ORDERED: PERC5TAB12 PO (06:38)
--- NOTE | 2020-02-07 08:26 | REP ---
REASON: Status post THR. Total hip prosthesis is in place. Left femoral and acetabular components are well seated and well approximated. There is expected postoperative soft tissue swelling. There is a skin staple line in place. IMPRESSION: Status post THR. Electronically Signed by Emilio Rock DO 02/07/2020 08:28 A
[2020-02-07] MEDS: MIRALAX *UNIT DOSE* 17GM PACKET PO SCH (10:11)
[2020-02-07] MEDS: VITAMIN D (CHOLECALCIFEROL) 400 INTERNATIONAL UNITS TAB PO SCH (10:11)
[2020-02-07] MEDS: ASPIRIN 81 MG ENTERIC TAB PO SCH ×2 (10:11→20:32)
[2020-02-07] MEDS: MOM 30ML SUSPENSION UDC PO SCH (10:11)
[2020-02-07] MEDS: LETROZOLE 2.5 MG TAB PO SCH (10:14)
[2020-02-07] MEDS: FERROUS GLUCONATE 324 MG TAB PO SCH (10:14)
--- NOTE | 2020-02-07 11:40 | IPNPDOC ---
Subjective Date Seen The patient was seen on 02/07/20. Subjective Chief Complaint/HPI Patient feeling much better, status post left hip arthroplasty General: Denies: ROS Unobtainable, Chills, Night Sweats, Fatigue, Malaise, Normal Appetite, Other Symptoms Constitutional: Denies: Chills, Fever, Malaise, Night Sweats, Weakness, Fatigue, Weight Loss, Lethargy, Other Pulmonary: Denies: Dyspnea, Cough, Pleuritic Chest Pain, Other Symptoms Cardiovascular: Denies: Chest Pain, Palpitations, Orthopnea, Paroxysmal Noc. Dyspnea, Edema, Lt Headedness, Other Symptoms Gastrointestinal: Denies: Nausea, Vomiting, Abdominal Pain, Diarrhea, Constipation, Melena, Hematochezia, Other Symptoms Musculoskeletal: Denies: Neck Pain, Back Pain, Shoulder Pain, Arm Pain, Hand Pain, Leg Pain, Foot Pain, Joint Pain, Muscle Pain, Spasms, Other Symptoms Neurological: Denies: Weakness, Numbness, Incoordination, Change in speech, Confusion, Seizures, Other Symptoms Objective Physical Examination General Exam: Positive: Alert, Cooperative Eye Exam: Positive: PERRLA, Conjunctiva & lids normal ENT Exam: Positive: Atraumatic Neck Exam: Positive: Supple Chest Exam: Positive: Clear to auscultation, Normal air movement Heart Exam: Positive: Rate Normal, Normal S1 Abdomen Exam: Positive: Normal bowel sounds Extremity Exam: Positive: Normal pulses Skin Exam: Positive: Nl turgor and temperature Neuro Exam: Positive: Strength at 5/5 X4 ext, Sensation Intact, Cranial Nerves 3-12 NL Psych Exam: Positive: Mood NL, Oriented x 3 Assessment /Plan Problems (1) Arthropathy of left hip Status: Acute Problem Text: Patient is status post left hip arthroplasty, which she tolerated procedure very well with minimum intraoperative loss of blood. pt feeling very comfortable. Physical therapy in progress Possible discharge soon. Once cleared by physical therapy Continue present pain, pain management and DVT prophylaxis Discharge planning as per orthopedics (2) HTN (hypertension) Status: Chronic Problem Text: Under well control DD present meds (3) Hyperlipemia Status: Chronic Problem Text: Under well control Continue present meds Plan/VTE VTE Prophylaxis Ordered?: Yes VS, I&O, 24H, Fishbone Vital Signs/I&O Vital Signs Date Time Temp Pulse Resp B/P (MAP) Pulse Ox O2 Delivery O2 Flow Rate FiO2 6/11/20 10:43 18 Room Air 02/07/20 10:01 97.5 72 138/67 (90) 96 I&O- Last 24 Hours up to 6 AM 02/07/20 06:00 Intake Total 2790 ml Output Total 1000 ml Balance 1790 ml Laboratory Data 24H LABS Laboratory Tests 2 02/07/20 05:20: Immature Granulocyte % (Auto) 0.2, Neutrophils (%) (Auto) 87.2H, Lymphocytes (%) (Auto) 6.3L, Monocytes (%) (Auto) 6.1H, Eosinophils (%) (Auto) 0.0, Basophils (%) (Auto) 0.2, Neutrophils # (Auto) 8.1, Lymphocytes # (Auto) 0.6L, Monocytes # (Auto) 0.6, Eosinophils # (Auto) 0.0, Basophils # (Auto) 0.0, Nucleated Red Blood Cells % (auto) 0.0, Anion Gap 7L, Glomerular Filtration Rate > 60.0, Calcium Level 8.1L, Total Bilirubin 0.6, Aspartate Amino Transf (AST/SGOT) 19, A lanine Aminotransferase (ALT/SGPT) 15, Alkaline Phosphatase 66, Total Protein 5.7L, Albumin 3.1L, Albumin/Globulin Ratio 1.2 CBC/BMP Laboratory Tests 02/07/20 05:20 TRISHA MAXWELL MD Feb 07, 2020 11:40
[2020-02-07] MEDS ORDERED: traMADol 50 MG TAB PO PRN (17:30)
[2020-02-07] MEDS: traMADol 50 MG TAB PO PRN (18:17)
[2020-02-07] MEDS: SIMVASTATIN 40 MG TAB PO SCH (20:32)
[2020-02-07] MEDS: ACETAMINOPHEN 500 MG TAB PO SCH (20:33)
[2020-02-08] MEDS: ACETAMINOPHEN 500 MG TAB PO SCH (05:32)
[2020-02-08 05:46] VITALS: BP 138/70
[2020-02-08] MEDS ORDERED: QC A650T3 PO (06:20)
[2020-02-08] MEDS ORDERED: TRAM50TA2 PO (06:20)
[2020-02-08 07:18] LABS: HEMOGLOBIN 9.3 g/dl (12.0-15.5); MEAN CORPUSCULAR HEMOGLOBIN 30.6 pg (27.0-33.0); MEAN CORPUSCULAR HGB CONC 33.2 g/dl (32.0-36.5); MEAN CORPUSCULAR VOLUME 92.1 fl (80.0-96.0); PLATELET COUNT, AUTOMATED 164 10^3/uL (150-450); RED BLOOD COUNT 3.04 10^6/uL (4.00-5.40)
[2020-02-08] MEDS: MOM 30ML SUSPENSION UDC PO SCH (08:16)
[2020-02-08] MEDS: FERROUS GLUCONATE 324 MG TAB PO SCH (08:16)
[2020-02-08] MEDS: LETROZOLE 2.5 MG TAB PO SCH (08:16)
[2020-02-08] MEDS: ASPIRIN 81 MG ENTERIC TAB PO SCH (08:16)
[2020-02-08] MEDS: MIRALAX *UNIT DOSE* 17GM PACKET PO SCH (08:16)
[2020-02-08] MEDS: VITAMIN D (CHOLECALCIFEROL) 400 INTERNATIONAL UNITS TAB PO SCH (08:16)
[2020-02-08] MEDS: traMADol 50 MG TAB PO PRN (10:03)
--- NOTE | 2020-02-08 10:19 | IPNPDOC ---
Subjective Date Seen The patient was seen on 02/08/20. Subjective Chief Complaint/HPI Patient is comfortable in no distress Tolerating physical therapy very well today Constitutional: Denies: Chills, Fever, Malaise, Night Sweats, Weakness, Fatigue, Weight Loss, Lethargy, Other Pulmonary: Denies: Dyspnea, Cough, Pleuritic Chest Pain, Other Symptoms Cardiovascular: Denies: Chest Pain, Palpitations, Orthopnea, Paroxysmal Noc. Dyspnea, Edema, Lt Headedness, Other Symptoms Gastrointestinal: Denies: Nausea, Vomiting, Abdominal Pain, Diarrhea, Constipation, Melena, Hematochezia, Other Symptoms Musculoskeletal: Denies: Neck Pain, Back Pain, Shoulder Pain, Arm Pain, Hand Pain, Leg Pain, Foot Pain, Joint Pain, Muscle Pain, Spasms, Other Symptoms Neurological: Denies: Weakness, Numbness, Incoordination, Change in speech, Confusion, Seizures, Other Symptoms Objective Physical Examination General Exam: Positive: Alert, Cooperative Chest Exam: Positive: Clear to auscultation, Normal air movement Heart Exam: Positive: Rate Normal, Normal S1 Abdomen Exam: Positive: Normal bowel sounds Extremity Exam: Positive: Normal pulses Skin Exam: Positive: Nl turgor and temperature Neuro Exam: Positive: Strength at 5/5 X4 ext, Sensation Intact, Cranial Nerves 3-12 NL Assessment /Plan Problems (1) Arthropathy of left hip Status: Acute Problem Text: Patient is status post left hip arthroplasty, which she tolerated procedure very well with minimum intraoperative loss of blood. Patient is feeling comfortable in no distress Tolerating physical therapy very well Continue present pain, pain management and DVT prophylaxis Just planning as per orthopedic today (2) HTN (hypertension) Status: Chronic Problem Text: Under well control DD present meds (3) Hyperlipemia Status: Chronic Problem Text: Under well control Continue present meds Plan/VTE VTE Prophylaxis Ordered?: Yes VS, I&O, 24H, Fishbone Vital Signs/I&O Vital Signs Date Time Temp Pulse Resp B/P (MAP) Pulse Ox O2 Delivery O2 Flow Rate FiO2 02/08/20 10:03 18 02/08/20 05:46 97.6 77 138/70 (92) 99 Room Air I&O- Last 24 Hours up to 6 AM 02/08/20 05:59 Intake Total 2410 ml Output Total 1600 ml Balance 810 ml Laboratory Data 24H LABS Laboratory Tests 2 02/07/20 17:29: Bedside Glucose (Misc Panel) 142H 02/08/20 06:20: Nucleated Red Blood Cells % (auto) 0.0 CBC/BMP Laboratory Tests 02/08/20 06:20 TRISHA MAXWELL MD Feb 08, 2020 10:19
--- NOTE | 2020-02-11 16:40 | RO ---
DATE OF PROCEDURE: 02/06/2020 PREOPERATIVE DIAGNOSIS: Left hip degenerative arthritis. POSTOPERATIVE DIAGNOSIS: Left hip degenerative arthritis. PROCEDURE: Left total hip arthroplasty. SURGEON: Dr. Janell Leong WEATHER STRIP MECHANIC: Mayda Hodge ANESTHESIA: Spinal. COMPLICATIONS: None. ESTIMATED BLOOD LOSS: 200 mL. SPECIMEN: Femoral head. PROSTHESIS: A size 6 high offset stem with a +5 neck, 36 head, 54 cup. Prosthesis was a [place] stem. Prosthesis was made by [employer]. DESCRIPTION OF PROCEDURE: Antibiotics were given intravenously preoperatively, and a successful spinal anesthetic was induced, and she was placed in the lateral decubitus position. The [place] hip positioner was utilized. Her down leg was well padded, especially the peroneal nerve. Axillary roll was utilized. Left hip area was carefully prepped and draped in the usual sterile fashion. After appropriate time-out, a longitudinal incision was made for a direct lateral approach to the hip. Bovie cautery was used to coagulate crossing vessels. We dissected down to the tensor fascia, which was then divided in line with the skin incision. Split the gluteus medius anterior one-third and posterior two-third junction, carefully dissected down to the underlying gluteus minimus and entered hip capsule and then eventually was able to dislocate the hip anteriorly and place the leg into the leg bag. Piriformis fossa was identified, starter reamer placed followed by the canal finding reamer then the lateralizing reamer. Then, we reamed up to a size 6, had good cortical bite at that point. Femoral neck osteotomy was performed using the jig. Then, we began broaching. It was noteworthy that she had quite a bit of osteoporosis in the proximal femur. We were able to broach up to a size 6 then use the calcar planer. We then removed the broach and exposed the acetabulum. She had very large rim osteophytes, especially anteriorly, but we began reaming at 46, advanced to 51. A 52 trial was a bit loose, so we decided to go up to a 54. So, we reamed up to 53 and the trial 54 was placed and it fit nicely. Thus, we used the 54 cup. We copiously irrigated out the acetabulum, placed the real 54 cup, using the extramedullary alignment jig to help set our version and abduction. We then placed a trial polyethylene in and then we did remove the very large anterior and inferior rim osteophytes. The trial broach was then placed. The standard offset stem was first trialed with a 1.5 neck. Cup seemed to be in good position, especially very stable flexion, internal rotation, and extension external rotation. The neck would slightly touch the posterior rim in extreme extension/external rotation. Thus, we elected to try the high offset stem given how laterally her hip was to start and that we had to deepen quite a bit to get down to the floor of the acetabulum during our reaming. Thus, I felt the high offset stem would be most appropriate for her hip abduction function. We then trialed with a high offset trial with a #5 neck and she had very good stability with flexion, internal rotation, and extension, external rotation, minimal soft tissue telescoping. Thus, I felt this was the appropriate size. Thus, at this point, I then removed all the trial components in the acetabulum and placed the real acetabular liner after the central hole eliminator, after pulsatile lavaging irrigating out the acetabulum. We made sure it was seated with the freer elevator. We then placed the real high-offset stem after copiously irrigating out the femoral canal. It fit nicely with a good fit. I then reduced with a +5 neck length and, once again, she seemed to be in good position. She was stable with flexion, internal rotation, and extension, external rotation, and only would hit the rim in external rotation at extreme of extension, external rotation. There was very minimal soft tissue telescoping. Thus, I felt this was appropriate size neck length and, thus, I removed the trial and then dried the trunnion of the stem and placed the real +5, 36 ball then reduced the hip after copiously irrigating. We then carefully anatomically repaired the gluteus minimus back to its normal position as well as the gluteus medius with series of interrupted #1 PDS sutures. Given the high offset stem, there was some tension on the medius repair. We irrigated again at this layer and then closed the tensor fascia with a combination of #1 PDS sutures and then a running #1 Stratafix. We irrigated the deep subdermal tissues and closed them with interrupted #2-0 PDS sutures. Skin was closed with abdifatah, covered by an Optifoam dressing and dry, sterile, bulky dressing, Then she was turned supine and transferred to the recovery room in stable condition. There were no intraoperative complications. Mayda Hodge, my bacteriology research assistant, was critical to the success of this difficult procedure by helping to apply appropriate soft tissue retraction, to help to reduce and relocate the hip several times throughout this difficult procedure, helped to position the patient, helped to close the wound, amongst many other tasks to allow me to perform the operation smoothly, efficiently, and safely.
== END 2020-02-08 10:40 | disposition home or self-care (01) | DRG 470 ==
LOC: M OR 12:57 → M MS5PR 19:35
PROVIDERS: ADMIT Orthopaedic Surgery; ATTEND Orthopaedic Surgery
PROC: 0SRB02Z Replacement of Left Hip Joint with Metal on Polyethylene Synthetic Substitute, Open Approach (ICD-10-PCS; principal; 2020-02-06 15:10)
DX: M16.12 Unilateral primary osteoarthritis, left hip (principal); E78.5 Hyperlipidemia, unspecified; I10 Essential (primary) hypertension; E55.9 Vitamin D deficiency, unspecified; Z11.59 Encounter for screening for other viral diseases; Z85.3 Personal history of malignant neoplasm of breast; Z79.82 Long term (current) use of aspirin; Z79.899 Other long term (current) drug therapy

== ENCOUNTER → 2020-07-03 | Outpatient (CLI) | payer MEDICARE ==
[~2020-07-03] MED LIST changes: -ACETAMINOPHEN 500 MG TAB PO ONE; +ASPI81TA86 PO; -LR 1,000 ML IV ONE; +PERC5TAB12 PO; +QC A650T3 PO; +TRAM50TA2 PO; -ceFAZolin SOD 2 GM in IV 1 EA IV ONE
[2020-07-03 07:47] LABS: BASO % 0.9 % (0.0-1.0); EOS # 0.1 10^3/uL (0.0-0.5); EOS % 2.9 % (0.0-3.0); HEMOGLOBIN 12.6 g/dl (12.0-15.5); LYMPH # 1.1 10^3/uL (1.5-5.0); LYMPH % 30.7 % (24.0-44.0); MEAN CORPUSCULAR HEMOGLOBIN 27.7 pg (27.0-33.0); MEAN CORPUSCULAR HGB CONC 30.7 g/dl (32.0-36.5); MEAN CORPUSCULAR VOLUME 90.1 fl (80.0-96.0); MONO # 0.4 10^3/uL (0.0-0.8); MONO % 10.1 % (0.0-5.0); NEUTROPHILS # 1.9 10^3/uL (1.5-8.5); NEUTROPHILS % 55.4 % (36.0-66.0); PLATELET COUNT, AUTOMATED 232 10^3/uL (150-450); RED BLOOD COUNT 4.55 10^6/uL (4.00-5.40); WHITE BLOOD COUNT 3.5 10^3/uL (4.0-10.0)
[2020-07-03 08:18] LABS: ALT/SGPT 17 U/L (12-78); BILIRUBIN,TOTAL 0.5 MG/DL (0.2-1.0); BLOOD UREA NITROGEN 11 MG/DL (7-18); CALCIUM LEVEL 9.3 MG/DL (8.8-10.2); CARBON DIOXIDE LEVEL 29 MEQ/L (21-32); CHLORIDE LEVEL 108 MEQ/L (98-107); CREATININE FOR GFR 0.76 MG/DL (0.55-1.30); FREE T4 0.88 NG/DL (0.76-1.46); GLOMERULAR FILTRATION RATE > 60.0 (>39); GLUCOSE, FASTING 85 MG/DL (70-100); POTASSIUM SERUM 4.5 MEQ/L (3.5-5.1); SODIUM LEVEL 142 MEQ/L (136-145)
[2020-07-03 10:11] LABS: HEMOGLOBIN A1c 5.5 %
== END ==
LOC: M LAB 06:15
PROVIDERS: ATTEND Physician Assistant
DX: Z00.00 Encounter for general adult medical examination without abnormal findings (principal); E78.00 Pure hypercholesterolemia, unspecified; Z85.3 Personal history of malignant neoplasm of breast; R73.03 Prediabetes

== ENCOUNTER → 2020-12-10 | Outpatient (CLI) | payer MEDICARE ==
[~2020-12-10] MED LIST changes: -ALEN70TA74 PO; +ALEN70TA82 PO; -VITA-157 PO; +VITAE40CA PO
--- NOTE | 2020-12-10 10:59 | REPMRS ---
Patient History The patient states she has not had a clinical breast exam in over a year. Patient is postmenopausal, has history of cancer in the right breast at age 65, had previous chest radiation therapy at age 65, and had previous chemotherapy at age 65. Family history of breast cancer at age 57 in mother, breast cancer at age 50 or over in maternal aunt. Malignant lumpectomy of the right breast, October 2010. Took tamoxifen for 10 years. 3D TOMOSYNTHESIS WAS PERFORMED. Volpara breast density c. Digital Woman Screen Mammo: December 10, 2020 - Exam #: [id number] Bilateral CC and MLO view(s) were taken. Technologist: Leslie Irizarry, Prior study comparison: November 05, 2019, bilateral digital woman screen mammo performed at [facility]. October 25, 2018, bilateral digital mammo screening bilat, performed at [facility]. FINDINGS: The breast tissue is heterogeneously dense. This may lower the sensitivity of mammography. There has been no change in the appearance of the mammogram from the prior studies. There is a moderate amount of residual fibroglandular tissue which is fairly symmetric. There is no interval development of dominant mass, areas of architectural distortion, or clustered microcalcification typical of malignancy. No significant changes when compared with prior studies. Assessment: BI-RADS/ACR category 1 mammogram. Negative Mammogram. Recommendation Routine screening mammogram in 1 year (for women over age 40). This mammogram was interpreted with the aid of an FDA-approved computer-aided dectection system. Electronically Signed By: Fausto Meade MD 12/10/20 [id number]
== END ==
LOC: M WHC 08:53
PROVIDERS: ATTEND Specialist
DX: Z12.31 Encounter for screening mammogram for malignant neoplasm of breast (principal)

== ENCOUNTER → 2021-01-01 | Outpatient (CLI) | payer MEDICARE ==
[2021-01-01 10:28] LABS: BASO % 0.7 % (0.0-1.0); EOS # 0.2 10^3/uL (0.0-0.5); EOS % 4.6 % (0.0-3.0); HEMATOCRIT 41.8 % (36.0-47.0); HEMOGLOBIN 13.3 g/dl (12.0-15.5); LYMPH # 1.1 10^3/uL (1.5-5.0); LYMPH % 25.5 % (24.0-44.0); MEAN CORPUSCULAR HEMOGLOBIN 29.7 pg (27.0-33.0); MEAN CORPUSCULAR HGB CONC 31.8 g/dl (32.0-36.5); MEAN CORPUSCULAR VOLUME 93.3 fl (80.0-96.0); MONO # 0.4 10^3/uL (0.0-0.8); MONO % 9.4 % (2.0-8.0); NEUTROPHILS # 2.5 10^3/uL (1.5-8.5); NEUTROPHILS % 59.6 % (36.0-66.0); PLATELET COUNT, AUTOMATED 222 10^3/uL (150-450); RED BLOOD COUNT 4.48 10^6/uL (4.00-5.40); WHITE BLOOD COUNT 4.2 10^3/uL (4.0-10.0)
[2021-01-01 10:51] LABS: HEMOGLOBIN A1c 5.3 %
[2021-01-01 11:02] LABS: ALBUMIN 3.9 GM/DL (3.2-5.2); ALT/SGPT 22 U/L (12-78); BILIRUBIN,TOTAL 0.6 MG/DL (0.2-1.0); BLOOD UREA NITROGEN 14 MG/DL (7-18); CALCIUM LEVEL 9.3 MG/DL (8.8-10.2); CARBON DIOXIDE LEVEL 29 MEQ/L (21-32); CHLORIDE LEVEL 106 MEQ/L (98-107); CHOLESTEROL LEVEL 201 MG/DL (<200); CHOLESTEROL RISK RATIO 2.161 (<5); CREATININE FOR GFR 0.66 MG/DL (0.55-1.30); FREE T4 0.81 NG/DL (0.76-1.46); GLOMERULAR FILTRATION RATE > 60.0 (>39); GLUCOSE, FASTING 84 MG/DL (70-100); HDL CHOLESTEROL 93 MG/DL (>40); LDL CHOLESTEROL 85 MG/DL (<100); NON-HDL-C 108 MG/DL; POTASSIUM SERUM 4.8 MEQ/L (3.5-5.1); SODIUM LEVEL 138 MEQ/L (136-145); TOTAL PROTEIN 7.1 GM/DL (6.4-8.2); TRIGLYCERIDES LEVEL 113 MG/DL (<150)
== END ==
LOC: M LAB 09:13
PROVIDERS: ATTEND Family Medicine
DX: E78.2 Mixed hyperlipidemia (principal)

== ENCOUNTER → 2021-01-22 | Outpatient (CLI) | payer MEDICARE ==
[~2021-01-22] MED LIST changes: +COVI30VI IM
--- NOTE | 2021-01-22 13:42 | DEXAMM ---
INDICATION: OSTEOPENIA. Left hip replacement. COMPARISON: Multiple prior densitometry studies, the most recent which is from October 25, 2018 and the most remote is dated 22 September 2001.. TECHNIQUE: Bone density was measured using dual-energy x-ray absorptionmetry (DEXA). FINDINGS: AP SPINE L1-L4 BMD 1.071 g/cm2 Young Adult T-Score -1.0 Age Matched Z-Score 0.7. RT FEMUR, TOTAL BMD 0.794 g/cm2 Young Adult T-Score -1.7 Age Matched Z-Score 0.0. RT NECK BMD 0.811 g/cm2 Young Adult T-Score -1.6 Age Matched Z-Score 0.2. IMPRESSION: There is low bone density of the spine. There is low bone density of the right hip. The density of the spine has increased 0.3% since the initial exam on September 22, 2001. The density of the spine decrease 0.2% since most recent exam on October 25, 2018. The density of the right hip has decreased 4.8% since the initial exam on September 22, 2001. The density of the right hip has decreased 2.5% since the most recent exam on October 25, 2018. FOLLOW-UP: Recommendation for the next bone density exam: 2 years. <Electronically signed by Doug Leon > 01/22/21 [id number]
== END ==
LOC: M WHC 12:57
PROVIDERS: ATTEND Internal Medicine Medical Oncology
DX: M81.0 Age-related osteoporosis without current pathological fracture (principal)

== ENCOUNTER → 2021-02-24 | Outpatient (CLI) | payer MEDICARE ==
--- NOTE | 2021-02-24 08:39 | REP ---
INDICATION: PAIN IN LEFT WRIST COMPARISON: None. TECHNIQUE: AP, lateral, bilateral oblique views left wrist. FINDINGS: Diffuse age-related osteopenia and moderate lewis carpal osteoarthritic degenerative changes are appreciated small amounts of chondrocalcinosis within scattered joint spaces are suspected. No acute fracture or dislocation identified. 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 <Electronically signed by Manuel Ballard > 02/24/21 [id number]
== END ==
LOC: M RAD 08:19
PROVIDERS: ATTEND Family Medicine
DX: M85.88 Other specified disorders of bone density and structure, other site (principal); M19.032 Primary osteoarthritis, left wrist

== ENCOUNTER → 2021-07-07 | Outpatient (CLI) | payer MEDICARE ==
[2021-07-07 07:29] LABS: BASO % 0.8 % (0.0-1.0); EOS # 0.1 10^3/uL (0.0-0.5); EOS % 2.4 % (0.0-3.0); HEMATOCRIT 39.1 % (36.0-47.0); HEMOGLOBIN 12.7 g/dl (12.0-15.5); LYMPH # 1.1 10^3/uL (1.5-5.0); MEAN CORPUSCULAR HGB CONC 32.5 g/dl (32.0-36.5); MEAN CORPUSCULAR VOLUME 92.2 fl (80.0-96.0); MONO # 0.4 10^3/uL (0.0-0.8); MONO % 10.9 % (2.0-8.0); NEUTROPHILS % 54.6 % (36.0-66.0); PLATELET COUNT, AUTOMATED 221 10^3/uL (150-450); RED BLOOD COUNT 4.24 10^6/uL (4.00-5.40); WHITE BLOOD COUNT 3.7 10^3/uL (4.0-10.0)
[2021-07-07 07:49] LABS: HEMOGLOBIN A1c 5.6 %
[2021-07-07 07:54] LABS: BLOOD UREA NITROGEN 11 MG/DL (7-18); CALCIUM LEVEL 9.1 MG/DL (8.8-10.2); CARBON DIOXIDE LEVEL 28 MEQ/L (21-32); CHLORIDE LEVEL 105 MEQ/L (98-107); CREATININE FOR GFR 0.83 MG/DL (0.55-1.30); GLOMERULAR FILTRATION RATE > 60.0 (>39); GLUCOSE, FASTING 95 MG/DL (70-100); POTASSIUM SERUM 4.5 MEQ/L (3.5-5.1); SODIUM LEVEL 138 MEQ/L (136-145)
[2021-07-07 07:55] LABS: ALBUMIN 3.7 GM/DL (3.2-5.2); ALT/SGPT 23 U/L (12-78); BILIRUBIN,TOTAL 0.6 MG/DL (0.2-1.0); CHOLESTEROL LEVEL 182 MG/DL (<200); CHOLESTEROL RISK RATIO 2.116 (<5); FREE T4 0.92 NG/DL (0.76-1.46); HDL CHOLESTEROL 86 MG/DL (>40); LDL CHOLESTEROL 84 MG/DL (<100); NON-HDL-C 96 MG/DL; TOTAL PROTEIN 6.8 GM/DL (6.4-8.2); TRIGLYCERIDES LEVEL 61 MG/DL (<150)
== END ==
LOC: M LAB 07:04
PROVIDERS: ATTEND Physician Assistant
DX: E78.00 Pure hypercholesterolemia, unspecified (principal)

== ENCOUNTER → 2021-10-03 | Outpatient (CLI) | payer MEDICARE ==
[~2021-10-03] MED LIST changes: +AMOX500C PO
== END ==
LOC: M LABSMTC 09:15
PROVIDERS: ATTEND Anesthesiology
DX: Z01.812 Encounter for preprocedural laboratory examination (principal); Z20.822 Contact with and (suspected) exposure to COVID-19

== ENCOUNTER 2021-10-08 08:23 | Day surgery (SDC) | payer MEDICARE ==
[~2021-10-08] VITALS: Ht 162.6 cm; Wt 56.2 kg
[~2021-10-08 08:23] MED LIST changes: +NS 1,000 ML IV ONE
[2021-10-08] MEDS ORDERED: propofoL 500 MG/50 ML VIAL As Ordered ONE (08:53)
[2021-10-08] MEDS ORDERED: LIDOCAINE 2% 100MG/5ML SDV (FOR ANES.) As Ordered ONE (08:53)
[2021-10-08] MEDS ORDERED: propofoL 200 MG/20 ML VIAL As Ordered ONE (09:03)
[2021-10-08 10:15] VITALS: BP 172/92
== END 2021-10-08 10:25 | disposition home or self-care (01) ==
LOC: M OPP 08:23
PROVIDERS: ATTEND Surgery
DX: Z12.11 Encounter for screening for malignant neoplasm of colon (principal); Z86.010 Personal history of colon polyps; Z98.0 Intestinal bypass and anastomosis status; Z85.3 Personal history of malignant neoplasm of breast; Z92.3 Personal history of irradiation; Z92.21 Personal history of antineoplastic chemotherapy; Z79.82 Long term (current) use of aspirin; Z79.899 Other long term (current) drug therapy; Z91.048 Other nonmedicinal substance allergy status

== ENCOUNTER → 2022-01-07 | Outpatient (CLI) | payer MEDICARE ==
[~2022-01-07] MED LIST changes: -NS 1,000 ML IV ONE
[2022-01-07 07:45] LABS: BASO % 0.7 % (0.0-1.0); EOS # 0.1 10^3/uL (0.0-0.5); EOS % 2.2 % (0.0-3.0); HEMATOCRIT 41.6 % (36.0-47.0); HEMOGLOBIN 13.6 g/dl (12.0-15.5); LYMPH # 1.3 10^3/uL (1.5-5.0); LYMPH % 31.8 % (24.0-44.0); MEAN CORPUSCULAR HEMOGLOBIN 30.2 pg (27.0-33.0); MEAN CORPUSCULAR HGB CONC 32.7 g/dl (32.0-36.5); MEAN CORPUSCULAR VOLUME 92.2 fl (80.0-96.0); MONO # 0.4 10^3/uL (0.0-0.8); MONO % 9.2 % (2.0-8.0); NEUTROPHILS # 2.3 10^3/uL (1.5-8.5); NEUTROPHILS % 55.9 % (36.0-66.0); PLATELET COUNT, AUTOMATED 217 10^3/uL (150-450); RED BLOOD COUNT 4.51 10^6/uL (4.00-5.40)
[2022-01-07 08:01] LABS: HEMOGLOBIN A1c 5.6 %
[2022-01-07 08:06] LABS: ALT/SGPT 17 U/L (12-78); BILIRUBIN,TOTAL 0.6 MG/DL (0.2-1.0); BLOOD UREA NITROGEN 14 MG/DL (7-18); CALCIUM LEVEL 9.7 MG/DL (8.8-10.2); CARBON DIOXIDE LEVEL 27 MEQ/L (21-32); CHLORIDE LEVEL 108 MEQ/L (98-107); CHOLESTEROL LEVEL 201 MG/DL (<200); CHOLESTEROL RISK RATIO 2.258 (<5); CREATININE FOR GFR 0.83 MG/DL (0.55-1.30); GLOMERULAR FILTRATION RATE > 60.0 (>39); GLUCOSE, FASTING 85 MG/DL (70-100); HDL CHOLESTEROL 89 MG/DL (>40); LDL CHOLESTEROL 95 MG/DL (<100); NON-HDL-C 112 MG/DL; POTASSIUM SERUM 4.7 MEQ/L (3.5-5.1); SODIUM LEVEL 140 MEQ/L (136-145); TOTAL PROTEIN 7.2 GM/DL (6.4-8.2); TRIGLYCERIDES LEVEL 87 MG/DL (<150)
== END ==
LOC: M LAB 06:52
PROVIDERS: ATTEND Family Medicine
DX: E78.00 Pure hypercholesterolemia, unspecified (principal); R73.03 Prediabetes

== ENCOUNTER → 2022-02-15 | Outpatient (CLI) | payer MEDICARE | LOC: M LAB 08:08 | PROVIDERS: ATTEND Nurse Practitioner Adult Health | DX: Z11.59 Encounter for screening for other viral diseases (principal); W57.XXXA Bitten or stung by nonvenomous insect and other nonvenomous arthropods, initial encounter ==

== ENCOUNTER → 2022-07-15 | Outpatient (CLI) | payer MEDICARE ==
[2022-07-15 08:34] LABS: BASO % 0.7 % (0.0-1.0); EOS # 0.1 10^3/uL (0.0-0.5); EOS % 2.2 % (0.0-3.0); HEMATOCRIT 40.6 % (36.0-47.0); HEMOGLOBIN 13.3 g/dl (12.0-15.5); LYMPH # 0.9 10^3/uL (1.5-5.0); LYMPH % 22.5 % (24.0-44.0); MEAN CORPUSCULAR HEMOGLOBIN 30.2 pg (27.0-33.0); MEAN CORPUSCULAR HGB CONC 32.8 g/dl (32.0-36.5); MEAN CORPUSCULAR VOLUME 92.1 fl (80.0-96.0); MONO # 0.4 10^3/uL (0.0-0.8); MONO % 9.2 % (2.0-8.0); NEUTROPHILS # 2.6 10^3/uL (1.5-8.5); NEUTROPHILS % 65.2 % (36.0-66.0); PLATELET COUNT, AUTOMATED 233 10^3/uL (150-450); RED BLOOD COUNT 4.41 10^6/uL (4.00-5.40)
[2022-07-15 09:14] LABS: BILIRUBIN,TOTAL 0.7 MG/DL (0.3-1.2); CHOLESTEROL RISK RATIO 2.31 (<5); CREATININE FOR GFR 0.99 MG/DL (0.55-1.30); FREE T4 0.96 NG/DL (0.89-1.76); GLOMERULAR FILTRATION RATE 58.2 (>39); HDL CHOLESTEROL 77.9 MG/DL (>40); LDL CHOLESTEROL 80.1 MG/DL (<100); POTASSIUM SERUM 4.3 MMOL/L (3.5-5.1); THYROID STIMULATING HORMONE 3.558 uIU/ML (0.55-4.78); TOTAL PROTEIN 6.8 G/DL (5.7-8.2)
[2022-07-15 11:36] LABS: HEMOGLOBIN A1c 5.4 % (4.0-6.0)
== END ==
LOC: M LAB 07:58
PROVIDERS: ATTEND Nurse Practitioner Adult Health
DX: E78.00 Pure hypercholesterolemia, unspecified (principal); Z79.899 Other long term (current) drug therapy

== ENCOUNTER 2022-10-04 17:05 | Emergency (ER) | payer MEDICARE ==
[~2022-10-04] VITALS: Ht 162.6 cm; Wt 62.2 kg
[2022-10-05 01:25] LABS: HEMATOCRIT 38.6 % (36.0-47.0); HEMOGLOBIN 12.9 g/dl (12.0-15.5); MEAN CORPUSCULAR HEMOGLOBIN 30.1 pg (27.0-33.0); MEAN CORPUSCULAR HGB CONC 33.4 g/dl (32.0-36.5); PLATELET COUNT, AUTOMATED 237 10^3/uL (150-450); RED BLOOD COUNT 4.29 10^6/uL (4.00-5.40); WHITE BLOOD COUNT 6.8 10^3/uL (4.0-10.0)
[2022-10-05 01:40] LABS: INR 1.02; PROTHROMBIN TIME 13.6 SECONDS (12.5-14.5)
[2022-10-05] MEDS ORDERED: AMLO25TA PO (01:57)
[2022-10-05 02:04] VITALS: BP 198/110
[2022-10-05 02:45] VITALS: BP 170/95
== END 2022-10-05 03:52 | disposition home or self-care (01) ==
LOC: M ED 17:05
DX: S09.90XA Unspecified injury of head, initial encounter (principal); W00.0XXA Fall on same level due to ice and snow, initial encounter; Y92.009 Unspecified place in unspecified non-institutional (private) residence as the place of occurrence of the external cause; I10 Essential (primary) hypertension; D64.9 Anemia, unspecified; E78.5 Hyperlipidemia, unspecified; Z85.3 Personal history of malignant neoplasm of breast; Z88.5 Allergy status to narcotic agent; Z91.048 Other nonmedicinal substance allergy status; Z79.82 Long term (current) use of aspirin; Z79.899 Other long term (current) drug therapy

== ENCOUNTER → 2022-12-13 | Outpatient (CLI) | payer MEDICARE ==
[~2022-12-13] MED LIST changes: +AMLO25TA PO
== END ==
LOC: M WHC 09:38
PROVIDERS: ATTEND Family Medicine
DX: Z12.31 Encounter for screening mammogram for malignant neoplasm of breast (principal)

== ENCOUNTER → 2023-02-10 | Outpatient (CLI) | payer MEDICARE ==
[2023-02-10 07:35] LABS: EOS # 0.1 10^3/uL (0.0-0.5); EOS % 3.6 % (0.0-3.0); HEMATOCRIT 41.2 % (36.0-47.0); HEMOGLOBIN 13.4 g/dl (12.0-15.5); LYMPH # 1.3 10^3/uL (1.5-5.0); LYMPH % 32.2 % (24.0-44.0); MEAN CORPUSCULAR HGB CONC 32.5 g/dl (32.0-36.5); MEAN CORPUSCULAR VOLUME 92.4 fl (80.0-96.0); MONO # 0.4 10^3/uL (0.0-0.8); NEUTROPHILS # 2.1 10^3/uL (1.5-8.5); NEUTROPHILS % 52.9 % (36.0-66.0); PLATELET COUNT, AUTOMATED 252 10^3/uL (150-450); RED BLOOD COUNT 4.46 10^6/uL (4.00-5.40); WHITE BLOOD COUNT 3.9 10^3/uL (4.0-10.0)
[2023-02-10 07:53] LABS: HEMOGLOBIN A1c 5.4 % (4.0-6.0)
[2023-02-10 08:08] LABS: FREE T4 0.95 NG/DL (0.89-1.76)
[2023-02-10 08:09] LABS: THYROID STIMULATING HORMONE 3.705 uIU/ML (0.55-4.78)
[2023-02-10 08:32] LABS: ALBUMIN 4.1 G/DL (3.2-5.2); ALKALINE PHOSPHATASE 88 U/L (46-116); ALT/SGPT 15 U/L (7.0-40); AST/SGOT 16 U/L (<34); BILIRUBIN,TOTAL 0.6 MG/DL (0.3-1.2); BLOOD UREA NITROGEN 15 MG/DL (9-23); CALCIUM LEVEL 8.9 MG/DL (8.3-10.6); CARBON DIOXIDE LEVEL 26 MMOL/L (20-31); CHLORIDE LEVEL 104 MMOL/L (98-107); CHOLESTEROL LEVEL 176 MG/DL (<200); CHOLESTEROL RISK RATIO 2.06 (<5); CREATININE FOR GFR 0.77 MG/DL (0.55-1.30); GLOMERULAR FILTRATION RATE > 60.0 (>39); GLUCOSE, FASTING 81 MG/DL (74-106); HDL CHOLESTEROL 85.1 MG/DL (>40); LDL CHOLESTEROL 75.7 MG/DL (<100); NON-HDL-C 90.9 MG/DL; POTASSIUM SERUM 4.2 MMOL/L (3.5-5.1); SODIUM LEVEL 135 MMOL/L (136-145); TOTAL PROTEIN 6.9 G/DL (5.7-8.2); TRIGLYCERIDES LEVEL 76 MG/DL (<150)
== END ==
LOC: M LAB 06:58
PROVIDERS: ATTEND Family Medicine
DX: R73.03 Prediabetes (principal); D50.9 Iron deficiency anemia, unspecified; E78.00 Pure hypercholesterolemia, unspecified

== ENCOUNTER → 2023-02-15 | Outpatient (CLI) | payer MEDICARE | LOC: M WHC 09:53 | PROVIDERS: ATTEND Internal Medicine Medical Oncology | DX: M81.0 Age-related osteoporosis without current pathological fracture (principal) ==

== ENCOUNTER → 2023-08-05 | Outpatient (CLI) | payer MEDICARE ==
[2023-08-05 10:00] LABS: WHITE BLOOD COUNT 4.4 10^3/uL (4.0-10.0)
[2023-08-05 10:01] LABS: BASO % 0.7 % (0.0-1.0); EOS # 0.1 10^3/uL (0.0-0.5); EOS % 2.7 % (0.0-3.0); HEMATOCRIT 40.2 % (36.0-47.0); HEMOGLOBIN 13.1 g/dl (12.0-15.5); LYMPH # 1.1 10^3/uL (1.5-5.0); LYMPH % 23.9 % (24.0-44.0); MEAN CORPUSCULAR HEMOGLOBIN 30.5 pg (27.0-33.0); MEAN CORPUSCULAR HGB CONC 32.6 g/dl (32.0-36.5); MEAN CORPUSCULAR VOLUME 93.5 fl (80.0-96.0); MONO # 0.5 10^3/uL (0.0-0.8); MONO % 10.8 % (2.0-8.0); NEUTROPHILS # 2.7 10^3/uL (1.5-8.5); NEUTROPHILS % 61.7 % (36.0-66.0); PLATELET COUNT, AUTOMATED 249 10^3/uL (150-450)
[2023-08-05 10:14] LABS: HEMOGLOBIN A1c 5.6 % (4.0-6.0)
[2023-08-05 10:18] LABS: ALKALINE PHOSPHATASE 74 U/L (46-116); ALT/SGPT 22 U/L (7.0-40); AST/SGOT 19 U/L (<34); BILIRUBIN,TOTAL 0.6 MG/DL (0.3-1.2); BLOOD UREA NITROGEN 13 MG/DL (9-23); CALCIUM LEVEL 9.2 MG/DL (8.3-10.6); CARBON DIOXIDE LEVEL 30 MMOL/L (20-31); CHLORIDE LEVEL 104 MMOL/L (98-107); CHOLESTEROL LEVEL 189 MG/DL (<200); CHOLESTEROL RISK RATIO 2.29 (<5); CREATININE FOR GFR 0.68 MG/DL (0.55-1.30); GLOMERULAR FILTRATION RATE > 60.0 (>39); GLUCOSE, FASTING 90 MG/DL (74-106); HDL CHOLESTEROL 82.3 MG/DL (>40); IRON (FE) 67 UG/DL (50-170); LDL CHOLESTEROL 87.3 MG/DL (<100); NON-HDL-C 106.7 MG/DL; POTASSIUM SERUM 4.4 MMOL/L (3.5-5.1); SODIUM LEVEL 137 MMOL/L (136-145); TOTAL IRON BINDING CAPACITY 373 UG/DL (250-425); TOTAL PROTEIN 6.9 G/DL (5.7-8.2); TRIGLYCERIDES LEVEL 97 MG/DL (<150)
[2023-08-05 10:19] LABS: FREE T4 0.96 NG/DL (0.89-1.76); THYROID STIMULATING HORMONE 3.845 uIU/ML (0.55-4.78)
== END ==
LOC: M LAB 08:43
PROVIDERS: ATTEND Nurse Practitioner Adult Health
DX: E78.00 Pure hypercholesterolemia, unspecified (principal); I10 Essential (primary) hypertension; R73.03 Prediabetes; D50.9 Iron deficiency anemia, unspecified

== ENCOUNTER → 2023-12-16 | Outpatient (CLI) | payer MEDICARE | LOC: M WHC 09:10 | PROVIDERS: ATTEND Family Medicine | DX: Z12.31 Encounter for screening mammogram for malignant neoplasm of breast (principal) ==

== ENCOUNTER → 2024-02-09 | Outpatient (CLI) | payer MEDICARE ==
[2024-02-09 07:59] LABS: HEMOGLOBIN A1c 5.4 % (4.0-6.0)
[2024-02-09 08:13] LABS: ALKALINE PHOSPHATASE 80 U/L (46-116); ALT/SGPT 18 U/L (7.0-40); AST/SGOT 13 U/L (<34); BILIRUBIN,TOTAL 0.6 MG/DL (0.3-1.2); BLOOD UREA NITROGEN 14 MG/DL (9-23); CALCIUM LEVEL 9.1 MG/DL (8.3-10.6); CARBON DIOXIDE LEVEL 30 MMOL/L (20-31); CHLORIDE LEVEL 101 MMOL/L (98-107); CHOLESTEROL LEVEL 174 MG/DL (<200); CHOLESTEROL RISK RATIO 2.25 (<5); CREATININE FOR GFR 0.65 MG/DL (0.55-1.30); GLOMERULAR FILTRATION RATE > 60.0 (>39); GLUCOSE, FASTING 88 MG/DL (74-106); HDL CHOLESTEROL 77.3 MG/DL (>40); IRON (FE) 73 UG/DL (50-170); LDL CHOLESTEROL 73.7 MG/DL (<100); NON-HDL-C 96.7 MG/DL; PERCENT SATURATION 19.4 % (13.2-45.0); POTASSIUM SERUM 5.2 MMOL/L (3.5-5.1); SODIUM LEVEL 135 MMOL/L (136-145); TOTAL IRON BINDING CAPACITY 376 UG/DL (250-425); TOTAL PROTEIN 6.7 G/DL (5.7-8.2); TRIGLYCERIDES LEVEL 115 MG/DL (<150)
[2024-02-09 08:14] LABS: THYROID STIMULATING HORMONE 5.256 uIU/ML (0.55-4.78)
[2024-02-09 08:15] LABS: FERRITIN 68.1 NG/ML (7.3-270.7); FREE T4 1.08 NG/DL (0.89-1.76)
== END ==
LOC: M LAB 06:28
PROVIDERS: ATTEND Family Medicine
DX: I10 Essential (primary) hypertension (principal); R73.03 Prediabetes; D50.9 Iron deficiency anemia, unspecified; E78.00 Pure hypercholesterolemia, unspecified

== ENCOUNTER → 2024-08-17 | Outpatient (CLI) | payer MEDICARE ==
[2024-08-17 08:43] LABS: BASO % 0.7 % (0.0-1.0); EOS # 0.1 10^3/uL (0.0-0.5); EOS % 3.4 % (0.0-3.0); HEMATOCRIT 41.7 % (36.0-47.0); HEMOGLOBIN 13.5 g/dl (12.0-15.5); LYMPH # 1.2 10^3/uL (1.5-5.0); LYMPH % 28.9 % (24.0-44.0); MEAN CORPUSCULAR HEMOGLOBIN 29.3 pg (27.0-33.0); MEAN CORPUSCULAR HGB CONC 32.4 g/dl (32.0-36.5); MEAN CORPUSCULAR VOLUME 90.5 fl (80.0-96.0); MONO # 0.5 10^3/uL (0.0-0.8); NEUTROPHILS # 2.3 10^3/uL (1.5-8.5); NEUTROPHILS % 55.8 % (36.0-66.0); PLATELET COUNT, AUTOMATED 251 10^3/uL (150-450); RED BLOOD COUNT 4.61 10^6/uL (4.00-5.40); WHITE BLOOD COUNT 4.1 10^3/uL (4.0-10.0)
[2024-08-17 09:03] LABS: HEMOGLOBIN A1c 5.6 % (4.0-6.0)
[2024-08-17 09:06] LABS: IRON (FE) 71 UG/DL (50-170)
[2024-08-17 09:07] LABS: ALBUMIN 3.7 G/DL (3.2-5.2); ALKALINE PHOSPHATASE 79 U/L (35-104); ALT/SGPT 15 U/L (7.0-40); AST/SGOT 16 U/L (<34); BILIRUBIN,TOTAL 0.6 MG/DL (0.3-1.2); BLOOD UREA NITROGEN 16 MG/DL (9-23); CALCIUM LEVEL 9.6 MG/DL (8.3-10.6); CARBON DIOXIDE LEVEL 28 MMOL/L (20-31); CHLORIDE LEVEL 103 MMOL/L (98-107); CHOLESTEROL LEVEL 194 MG/DL (<200); CHOLESTEROL RISK RATIO 2.48 (<5); CREATININE FOR GFR 0.73 MG/DL (0.55-1.30); GLOMERULAR FILTRATION RATE > 60.0 (>39); GLUCOSE, FASTING 89 MG/DL (74-106); LDL CHOLESTEROL 96.2 MG/DL (<100); PERCENT SATURATION 18.9 % (13.2-45.0); POTASSIUM SERUM 4.5 MMOL/L (3.5-5.1); SODIUM LEVEL 138 MMOL/L (136-145); TOTAL IRON BINDING CAPACITY 375 UG/DL (250-425); TOTAL PROTEIN 7.1 G/DL (5.7-8.2); TRIGLYCERIDES LEVEL 99 MG/DL (<150)
[2024-08-17 09:09] LABS: FREE T4 1.04 NG/DL (0.89-1.76); THYROID STIMULATING HORMONE 4.602 uIU/ML (0.55-4.78)
== END ==
LOC: M LAB 08:01
PROVIDERS: ATTEND Nurse Practitioner Adult Health
DX: D50.9 Iron deficiency anemia, unspecified (principal); E78.00 Pure hypercholesterolemia, unspecified; R94.6 Abnormal results of thyroid function studies; R73.03 Prediabetes

== ENCOUNTER → 2024-12-17 | Outpatient (CLI) | payer MEDICARE | LOC: M WHC 08:49 | PROVIDERS: ATTEND Family Medicine | DX: Z12.31 Encounter for screening mammogram for malignant neoplasm of breast (principal) ==

== ENCOUNTER → 2025-02-14 | Outpatient (CLI) | payer MEDICARE ==
[2025-02-14 08:44] LABS: BASO % 0.6 % (0.0-1.0); EOS # 0.1 10^3/uL (0.0-0.5); EOS % 2.9 % (0.0-3.0); HEMATOCRIT 38.8 % (36.0-47.0); HEMOGLOBIN 12.8 g/dl (12.0-15.5); LYMPH # 0.9 10^3/uL (1.5-5.0); LYMPH % 27.2 % (24.0-44.0); MEAN CORPUSCULAR HEMOGLOBIN 29.6 pg (27.0-33.0); MEAN CORPUSCULAR VOLUME 89.8 fl (80.0-96.0); MONO # 0.4 10^3/uL (0.0-0.8); MONO % 11.1 % (2.0-8.0); NEUTROPHILS % 57.9 % (36.0-66.0); PLATELET COUNT, AUTOMATED 226 10^3/uL (150-450); RED BLOOD COUNT 4.32 10^6/uL (4.00-5.40); WHITE BLOOD COUNT 3.4 10^3/uL (4.0-10.0)
[2025-02-14 09:02] LABS: HEMOGLOBIN A1c 5.6 % (4.0-6.0)
[2025-02-14 09:14] LABS: PERCENT SATURATION 14.1 % (13.2-45.0)
[2025-02-14 09:15] LABS: BILIRUBIN,TOTAL 0.6 MG/DL (0.3-1.2); CALCIUM LEVEL 9.1 MG/DL (8.3-10.6); CHOLESTEROL RISK RATIO 2.23 (<5); CREATININE FOR GFR 0.71 MG/DL (0.55-1.30); GLOMERULAR FILTRATION RATE 87.5 (>39); HDL CHOLESTEROL 83.7 MG/DL (>40); LDL CHOLESTEROL 87.3 MG/DL (<100); NON-HDL-C 103.3 MG/DL; POTASSIUM SERUM 4.6 MMOL/L (3.5-5.1); TOTAL PROTEIN 6.9 G/DL (5.7-8.2)
[2025-02-14 09:17] LABS: FERRITIN 76.1 NG/ML (7.3-270.7)
== END ==
LOC: M LAB 07:33
PROVIDERS: ATTEND Family Medicine
DX: I10 Essential (primary) hypertension (principal); D50.9 Iron deficiency anemia, unspecified; R73.03 Prediabetes